=== PATIENT | female | born 1990 | race Caucasian/White ===

== ENCOUNTER 2020-06-07 12:02 | Outpatient (CLI) | payer OTHER, SELFPAY ==
[2020-06-07 17:21] LABS: Influenza A QL RT-PCR Negative (Negative); Influenza B QL RT-PCR Negative (Negative)
[2020-06-07 17:22] LABS: SARS-CoV-2 RNA PCR Negative (Negative)
== END 2020-06-07 12:03 | disposition home or self-care (01) ==
PROVIDERS: PCP Internal Medicine; Visit Provider Internal Medicine
DX: J06.9 Acute upper respiratory infection, unspecified (principal); Z20.822 Contact with and (suspected) exposure to COVID-19
CPT/HCPCS: 87502; C9803; U0003; U0005

== ENCOUNTER 2021-03-19 17:21 | Outpatient (CLI) | payer OTHER, SELFPAY ==
[2021-03-19 18:16] LABS: SARS-CoV-2 Ag Negative (Negative)
== END 2021-03-19 17:22 | disposition home or self-care (01) ==
LOC: CHSLAB 17:25
PROVIDERS: PCP Internal Medicine; Visit Provider Internal Medicine
DX: J06.9 Acute upper respiratory infection, unspecified (principal); Z20.822 Contact with and (suspected) exposure to COVID-19
CPT/HCPCS: 87426; C9803

== ENCOUNTER 2022-02-11 18:48 | Emergency (ER) | payer OTHER, SELFPAY ==
[2022-02-11 19:02] VITALS: BP 125/80; PULSE 104; RESP 16; TEMP 37.6; O2SAT 100
--- NOTE | 2022-02-11 19:11 | ED.URI ---
HPI - URI/Sore Throat General Chief Complaint: Upper Respiratory Infection Stated Complaint: COUGH Time Seen by Provider: 02/11/22 19:30 Source: patient and RN notes reviewed Mode of arrival: ambulatory Limitations: no limitations History of Present Illness HPI Narrative: 31-year-old female presents with concern for more than 2 week history of cough, sinus congestion, sinus pressure, general malaise, low-grade temperature. She reports she has been taking multiple uhil-cww-pqzvbyo medications without relief, reports she started taking Sudafed today which showed some relief of her sinus pain. She reports members of her family have had similar illness. MD elicited complaint: cough, nasal congestion and sinus pain Related Data Home Medications Medication Instructions Recorded Confirmed levothyroxine 50 mcg tablet 50 mcg DAILY 02/11/22 02/11/22 Allergies Allergy/AdvReac Type Severity Reaction Status Date / Time Penicillins Allergy Unknown Hives / Verified 02/11/22 19:23 Red Face Review of Systems Review of Systems: CONSTITUTIONAL: Reports malaise, fever. EYES: Denies visual changes, redness, or discharge. ENT: Reports rhinorrhea, congestion, sinus pain, otalgia and sore throat. CARDIOVASCULAR: Denies chest pain, palpitations, or edema. RESPIRATORY: Reports cough. Denies dyspnea. GASTROINTESTINAL: Denies abdominal pain, nausea, vomiting, diarrhea SKIN: Denies rash or itching. MUSCULOSKELETAL: Reports myalgia. NEUROLOGIC: Reports headache. All systems reviewed & are unremarkable except as noted in HPI and below PMFSH Comments At time of signature, agree with nursing past medical, surgical, social and family history. There is no relevant family history pertinent to the presenting complaint Exam Narrative: GENERAL: Nontoxic-appearing and in no acute distress. HEAD: Normocephalic EYES: PERRLA, conjunctivae clear ENT: Nares clear, turbinates edematous and erythematous, brown discharge. Mucous membranes moist. TM pearly nevarez with dull light reflex bilaterally; no tragal tenderness. Oropharynx not erythematous without lesions. Tonsils not enlarged and without exudate, no drooling, no hoarseness, no trismus, uvula midline. NECK: Supple. No lymphadenopathy CHEST: Clear to auscultation, breath sounds equal. No wheezing, rhonchi, rales, or stridor. No respiratory distress, speaks in full sentences. Cough noted HEART: Regular rate and rhythm. No murmur heard. SKIN: Warm, dry, no rash. NEURO: Alert and oriented x3. PSYCH: Normal mood and affect Course Course Emergency Course: Patient is aware of diagnosis, understands and agrees to treatment plan. Anticipatory guidance given. Patient agrees to follow-up as directed and is aware of reasons to seek care at the emergency department. Portions of this record may have been created with voice recognition software Level of Care: Express Care Visit Vital Signs Vital signs: Vital Signs Temperature 99.7 F H 02/11/22 19:02 Pulse Rate 104 H 02/11/22 19:02 Respiratory Rate 16 02/11/22 19:02 Blood Pressure 125/80 02/11/22 19:02 Pulse Oximetry 100 02/11/22 19:02 Temperature 99.7 F H 02/11/22 19:02 Pulse Rate 104 H 02/11/22 19:02 Respiratory Rate 16 02/11/22 19:02 Blood Pressure 125/80 02/11/22 19:02 Pulse Oximetry 100 02/11/22 19:02 Reviewed. MDM - URI/Sore Throat MDM Narrative Medical decision making narrative: Differential diagnosis considered: Byers virus, strep pharyngitis, allergic rhinitis, upper respiratory tract infection, sinusitis, rhinosinusitis, nasopharyngitis. viral pharyngitis, otitis media, otitis externa, pneumonia, bronchitis, viral cough syndrome, viral syndrome, and influenza. Exam findings show no acute concerns or changes; patient is non-toxic appearing and is in no distress. Patient is appropriate for outpatient treatment and follow-up. Lab Data Attestation: I reviewed the patient's lab results. Critical Care Time
== END 2022-02-11 19:50 | disposition home or self-care (01) ==
PROVIDERS: Emergency Provider Nurse Practitioner; PCP Internal Medicine
DX: J01.90 Acute sinusitis, unspecified (principal)
CPT/HCPCS: 99213; G0463

== ENCOUNTER 2022-07-08 19:19 | Emergency (ER) | payer OTHER, SELFPAY ==
--- NOTE | 2022-07-08 19:24 | ED.URI ---
HPI - URI/Sore Throat General Chief Complaint: Upper Respiratory Infection Stated Complaint: DIARRHEA/SORE THROAT Source: patient and RN notes reviewed History of Present Illness HPI Narrative: 31 yo F Presents to urgent care with complaints of a sore throat since this morning and diarrhea since Wednesday. Pt states her stomach started feeling queezy on Wednesday after she ate sushi for lunch. Pt reports lower abdominal cramping and discomfort intermittently. Reports a little right sided ear pain. Pt denies any vomiting or fevers. Pt states her daughter tested + for strep throat today. Related Data Home Medications Medication Instructions Recorded Confirmed levothyroxine 50 mcg tablet 50 mcg DAILY 02/11/22 07/08/22 Allergies Allergy/AdvReac Type Severity Reaction Status Date / Time Penicillins Allergy Unknown Hives / Verified 07/08/22 19:28 Red Face Review of Systems Review of Systems: Pertinent positives and pertinent negatives per HPI. PMFSH Comments At the time of my signature, I reviewed and agree with the nursing past medical, surgical, social, and family history. There is no relevant family history pertinent to the patient complaint. Exam Narrative: GENERAL: This is a well-nourished, well-developed patient, in no apparent distress. HEAD: normocephalic, atraumatic. EYES: Sclera clear/white. Vision is grossly intact. EARS: External ears normal, auditory canals clear and without drainage, TMs normal without perforation. Hearing grossly intact. NOSE: External nose normal with no obvious nasal discharge, nares without redness, no rhinorrhea. THROAT: Mucous membranes moist, posterior pharynx erythremic. NECK: Neck supple, non-tender without lymphadenopathy, masses or thyromegaly. CARDIOVASCULAR: Regular rate and rhythm without murmurs, gallops, or rubs. RESPIRATORY: Clear to auscultation. Breath sounds equal bilaterally. No wheezes, rales, or rhonchi. GASTROINTESTINAL: Abdomen soft, non-tender, nondistended. Bowel sounds are active. No hepato-splenomegaly, or palpable masses. No guarding. SKIN: warm, intact with no suspicious lesions or rash, good texture and turgor. NEURO: awake, alert, and oriented to person, place and time. There were no obvious focal neurologic abnormalities. Course Course Level of Care: Express Care Visit Vital Signs Vital signs: Vital Signs Temperature 98.1 F 07/08/22 19:30 Pulse Rate 93 04/26/23 19:30 Respiratory Rate 16 07/08/22 19:30 Blood Pressure 123/80 07/08/22 19:30 Pulse Oximetry 100 07/08/22 19:30 Temperature 98.1 F 07/08/22 19:30 Pulse Rate 93 07/08/22 19:30 Respiratory Rate 16 07/08/22 19:30 Blood Pressure 123/80 07/08/22 19:30 Pulse Oximetry 100 07/08/22 19:30 Reviewed MDM - URI/Sore Throat MDM Narrative Medical decision making narrative: Rapid strep is negative in the office; however we will send to the lab for confirmation; there is a small percentage chance that it can come back positive; if it is, we will call you in 2-3days; and your prescription will be call in to your pharmacy. However, there is NO indication for antibiotic at this time. -Increase your fluids and Vitamin C. -Oral rinses such as: Salt water gargles and/or may use topical anesthetic (eg. Chloraseptic spray) or lozenges to relieve dryness or throat pain. -Take tylenol and ibuprofen as needed for pain and fever as directed. -Frequent hand washing or hand index editor is one of the best ways to prevent spread of infection. -Follow up with primary care provider in 2-3 days if condition is not improving or seek ER visit if your child starts breathing fast/has trouble breathing, is not drinking enough fluids, muffle voice, difficulty opening the mouth or will not wake up or will not interact with you. You've been diagnosed with a viral illness that would not require antibiotics at this time. You may take Imodium for diarrhea. If you would like to ea
[2022-07-08 19:30] VITALS: BP 123/80; PULSE 93; RESP 16; TEMP 36.7; O2SAT 100
== END 2022-07-08 19:41 | disposition home or self-care (01) ==
PROVIDERS: Emergency Provider Nurse Practitioner Family; PCP Internal Medicine
DX: K52.9 Noninfective gastroenteritis and colitis, unspecified (principal); J02.9 Acute pharyngitis, unspecified; E03.9 Hypothyroidism, unspecified
CPT/HCPCS: 87081; 87880; 99213; G0463

== ENCOUNTER 2022-10-26 00:20 | Day surgery (SDC) | payer OTHER, SELFPAY ==
[2022-10-16 14:27] VITALS: BMI 24.8
--- NOTE | 2022-10-16 14:37 | PC.NURSE ---
Report to the Outpatient Waiting Room, entrance under the green pavilion located off [facility], at time _0600_ on date _[id number]_. Planned Procedure Time: _0730_. Time changes happen often and if your time is changed the preop area will call you the afternoon before. - You and your visitor will be asked to self-screen and do not enter if you have any COVID symptoms. - A mask is optional within the hospital at this time. Patients may have clear liquids (water, carbonated beverages, clear teas, apple juice) until 3 hours prior to surgery with a maximum of 20 ounces. - No food from midnight until time of surgery Take the following medications with a SIP of water the morning of surgery: __Lexapro, Levothyroxine and if needed Hydroxyzine DO NOT STOP ANY OF YOUR OTHER PRESCRIPTION MEDICATIONS PRIOR TO SURGERY ?EXCEPT THE FOLLOWING Medications to discontinue per physician ____Multivitamin and Magnesium Date to take last gihl___[phone] Please no make-up, nail surinamese, hairspray, perfume, deodorant, or body powder the day of surgery. No jewelry (including any body piercings) or valuables the day of surgery, leave them at home. Please take a shower or bath the night before, or the morning of, surgery with an antibacterial soap. Wear comfortable, loose fitting clothing. - Jewelry must be removed prior to entering the operating room. Rings and piercings that are not removed may be cut off. - The hospital will not accept responsibility for valuables. - Please leave all valuables, including medications, at home the day of surgery. If you are going home after surgery, a licensed fire truck driver must drive you home. - NO public transportation without another adult if you receive anesthesia. - We recommend that an adult stay with you for 24 hours following discharge. - We also recommend that you do not drive, make important decision, drink alcoholic beverages, or take any drugs that were not prescribed by your health care provider for at least 24 hours after your discharge time. Follow any additional instructions given to you from your surgeon. If you or anyone in your household have experienced Covid symptoms in the past week, please notify your surgeon or the nurse liaison at the phone number below for possible testing. Telephone instructions given to _Patient__and asked if any additional questions and then verbalized understanding. Patient advised to call surgeon office or pre surgery nurse liaison [phone] if any additional questions.
[2022-10-26] VITALS (10 sets, daily range): BP systolic 103–136; BP diastolic 56–90; PULSE 83–108; RESP 11–20; TEMP 36.2–36.9; O2SAT 100
[2022-10-26] MEDS: ACETAMINOPHEN 500 MG TABLET 1000 MG PO (07:29)
[2022-10-26] MEDS: LACTATED RINGERS 1,000 ML 30 ML IV CONT ×2 (07:30→10:05)
[2022-10-26] MEDS: KETOROLAC 15 MG/ML VIAL (*BKC) IV PUSH (07:36)
--- NOTE | 2022-10-26 08:15 | WPDANESEPPF ---
Anes - Initial Pre Proc Eval Procedure: Operation Date: 10/26/22 08:45 Proposed Procedures p Anorectal Examination Under Anesthesia, Excisional Hemorrhoidectomy - Carlos De La O MD Date/Time: 10/26/22 08:15 Surgeon: Carlos De La O MD Pre Op Diagnosis: bleeding internal hemorrhoids Patient Data Age: 31 Gender: F Height: 1.6 m Weight: 60.6 kg Last Vital Signs Temp 36.9 C 10/26/22 06:53 Pulse 98 10/26/22 06:53 Resp 20 10/26/22 06:53 BP 126/77 10/26/22 06:53 Pulse Ox 100 10/26/22 06:53 O2 Del Method Room Air 10/26/22 06:53 Allergies Allergy/AdvReac Type Severity Reaction Status Date / Time Penicillins Allergy Unknown Hives / Verified 10/26/22 06:49 Red Face Home Medications Medication Instructions Recorded Confirmed Type levothyroxine 50 mcg tablet 50 mcg DAILY 02/11/22 10/26/22 History escitalopram oxalate 5 mg tablet 5 mg PO DAILY #90 tabs 08/25/22 10/26/22 Rx (Lexapro) hydrocortisone 2.5 % topical cream 1 applic RECTAL QHS PRN itching 08/25/22 10/26/22 Rx with perineal applicator #30 grams (Anusol-HC) valacyclovir 500 mg tablet 500 mg PO DAILY #90 tabs 10/07/22 10/16/22 Rx (Valtrex) hydroxyzine pamoate 25 mg capsule 25 mg PO BID PRN Anxiety 10/16/22 10/26/22 History magnesium carbonate 250 mg capsule 250 mg PO DAILY 10/16/22 10/26/22 History multivitamin 1 tablet PO DAILY 10/16/22 10/26/22 History Patient hx anesthesia problems: none Family hx anesthesia problems: none Results Review: All pre-operative results and documents have been reviewed as part of the pre-operative evaluation. 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 Surgical History Surgical History H/O gynecological procedure Mirena Iud removal / reinsertion 10/12/2018 Mirena iud insertion 01/29/ History of colposcopy 09/29/2022 colposcopy - EDUARD 3 Family History Family History Mother Diabetes mellitus Grandparent Carcinoma of colon Heart disease Cerebrovascular accident Osteoporosis Malignant tumor of pancreas Malignant neoplasm of liver Social History Social History Smoking packs per day: 0.5 Smoking cigarettes per day: 10.0 Years smoked: 8 Smoking pack-years: 4.00 Smoking status: Former smoker Tobacco type: cigarettes Smoking end date: 10/17/19 Alcohol intake: current Alcohol use details: occasionally Substance use: never Lack of Transportation: No Lack of Food: Never True Current Housing: Decline to Answer Concerned About Future Housing: Decline to Answer Difficulty Paying Gas/Electric Bills: Decline to Answer Difficulty Paying for Meds: Decline to Answer Currently Unemployed: Decline to Answer Education: Decline to Answer Difficulty w/ Childcare or Family Care: Decline to Answer Living arrangements: with family 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 Gender identity (if verbalized by the patient): Female Sexual Orientation (if Verbalized by the Patient): Straight or Heterosexual Spiritual care concerns: No Anes - Eval Final PreProcedure Day of Procedure 10/26/22 08:15 Patient weight: normal Heart: regular rate and rhythm Lungs: clear to auscultation Airway: Mallampati scale class 1 Neurological: alert and oriented Last oral intake: >/= 8 hours ASA classification: II Emergent: no Anesthetic plan: proceed Anesthesia type and monitoring: general ETT and standard monitoring Results Review: All pre-operative results and documents have been reviewed as part of the pre-operative evaluation. Informed Consent: The twan
--- NOTE | 2022-10-26 08:27 | PM.IMHP ---
H&P: HPI History of Present Illness Date/Time: 10/26/22 08:27 Chief Complaint: Bleeding hemorrhoids Narrative: Ms Alex is a 31 year old female that presents to the office at the request of Dr Johnson for an evaluation of hemorrhoids. Patient reports she has had bleeding with and after BMs for about 8 years. Patient reports that it has become worse of the last 2 years. She states that it is not with every BMs but most BMs. She states that she is having a BM everyday to every other day. She does not have to strain to have a BM. She has 2 children, and feels like this actually all started when she was with her first and just is now worse now. Patient states the she notes blood on the toilet paper and occasionally dripping into the toilet. She admits severe itching. She denies any prolapsing as well as occasional discomfort. Patient denies any previous rectal procedures. She has tried OTC hemorrhoid creams and suppositories and admits these help for a short time but she has found nothing helps prison. She states that her grandfather passed in his 70s due to colon cancer. She states that he was dx in his 50s. PFSH Medical History? 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 H/O gynecological procedure Mirena Iud removal / reinsertion 10/12/2018 Mirena iud insertion 01/29/ Family History? Mother Diabetes mellitusGrandparent Carcinoma of colon Heart disease Cerebrovascular accident Osteoporosis Malignant tumor of pancreas Malignant neoplasm of liver Social History? Smoking status:? Never smoker Alcohol intake:? current Alcohol use details:? occasionally Substance use:? never Lack of Transportation:? No Lack of Food:? Never True Current Housing:? Decline to Answer Concerned About Future Housing:? Decline to Answer Difficulty Paying Gas/Electric Bills:? Decline to Answer Difficulty Paying for Meds:? Decline to Answer Currently Unemployed:? Decline to Answer Education:? Decline to Answer Difficulty w/ Childcare or Family Care:? Decline to Answer Living arrangements:? with family Occupation/Education:? 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 Female Sexual Orientation (if Verbalized by the Patient):? Straight or Heterosexual Female Reproductive History Menstrual Age of Menarche: 14 control method: progestin IUCD (Mirena) Total pregnancies: 3 Full term: 2 Ab spontaneous: 1 Intake Vital Signs ? 09/16/2313:49 Height 1.6 m Height (Inches) 63 Weight 63.503 kg Weight (Lbs) 140 lbs., 0 oz. BMI 24.7 BP 118/66 Blood Pressure Location Rt brachial Position Sitting Pulse 77 Pulse Source Monitor Temp 37.0 C Temp Source Temporal Artery Scan Pulse Oximetry (%) 99 Oxygen Delivery Method Room Air Visit Reasons:?Hemorrhoid Evaluation New Allergies/Adverse Reactions Penicillins Allergy (Unknown, Verified 09/16/22 14:42) Hives / Red Face Preferred laboratory: [facility] Pre-Planning preparation?: Yes Review of Systems Const Reports no additional complaints, Denies frequent falls, Denies headache(s) and Reports other (no recent weight change, no fever) Eyes Denies blurry vision, Denies itchy eyes, Denies photophobia and Denies spots in vision ENT Reports Normal hearing present, Denies headache(s), Denies hoarseness, Denies lip swelling and Denies sore throat Card Denies chest pain at rest, Denies irregular heart rhythm and Denies dyspnea Resp Denies chest congestion, Denies cough and Denies dyspnea GI Denies melena and Denies coffee ground emesis Musc Denies abnormal gait and Denies back pain Skin/ Breast Denies new lesions, Denies rash and Denies wounds Neuro Reports Normal hearing present, Denies abnormal gait, Denie
--- NOTE | 2022-10-26 08:30 | WPDHPUPDATE1 ---
History and Physical Update Update Date/Time: 10/26/22 08:30 History and Physical has been reviewed, including an updated exam of the patient. There are NO changes in the patient's condition. Risks, benefits, and alternatives have been discussed and questions answered. Patient agrees to proceed with procedure.
[2022-10-26] MEDS: ceFAZolin 2 GM/D5W 50 ML 2 GM/50 ML BAG IVPB (08:45)
[2022-10-26] MEDS: BUPIVACAINE/EPINEPHRINE 0.5% 50 ML VIAL 20 ML INFILTRATE (09:18)
[2022-10-26] MEDS: LIDO 1%/EPINEPHRINE 1:100,000 20 ML VIAL INFILTRATE (09:19)
--- NOTE | 2022-10-26 10:21 | PM.OP ---
Procedure Note - Brief Procedure Note - Brief Date of procedure: 10/26/22 bleeding internal hemorrhoids Post-op diagnosis: Same Procedure performed: Excisional hemorrhoidectomy x2 Surgeon: Carlos De La O MD Anesthesia: GETA Implants: None Estimated blood loss (mL): 30 Drains: No Packing: Yes Pathology: Yes Complications: No immediate complications Condition: Stable Disposition: PACU
[2022-10-26] MEDS: oxyCODONE HCL (*CRX) 5 MG TAB IR PO (11:58)
--- NOTE | 2022-10-28 12:29 | W.PM.PROC2 ---
Procedure Note - Detailed Date of Procedure 10/26/22 Pre-op Diagnosis bleeding internal hemorrhoids Post-op Diagnosis Same Procedure Performed Excisional hemorrhoidectomy x2 Surgeon Carlos De La O MD Anesthesia General Indications Patient is a 31-year-old female who complains of having pain this rectal bleeding. Examination she appears to have bleeding internal hemorrhoids grade 2 to 3 into hemorrhoidal columns. These were located at the 9:00 and 3:00 positions with the patient prone. She presents now for excisional hemorrhoidectomy x2. Findings Grade 2 to grade 3 nonbleeding internal hemorrhoids at the 9:00 and 3:00 positions with the patient prone. No anal canal or distal rectal polyps or other lesions. Description of Procedure The patient was brought to the operating room and placed under general endotracheal anesthesia on the gurney. She was then turned into the prone genie-knife position on the operating table taking great care to make sure all the pressure points were padded. The tiny anal region was then prepped and draped in usual sterile fashion. A time-out was then performed correctly identifying the patient as well as procedure to be performed. She was given perioperative IV antibiotics. I then proceeded to easily dilate the anal sphincter muscles with a well lubricated speculum. Upon circumferential evaluation of distal rectum and anal canal there was no evidence of any masses or polyps. There were 2 grade 2 to grade 3 non thrombosed internal hemorrhoids without stigmata of recent bleeding at the 9:00 and 3:00 positions. I then proceeded to perform excisional hemorrhoidectomy on the 2 internal hemorrhoids. I 1st started with 1 at the 9 o'clock position which was the smaller of the 2. With a Victor anal retractor in place I exposed the 9 o'clock position and placed a 2-0 chromic suture above the apex of the hemorrhoid. Then carefully incised the tissue on either side of the hemorrhoidal column all the way out to the perianal skin in a fanny configuration. Then with careful scissor dissection I dissected the superficial to the internal sphincter muscle fibers and then proceeded to excise out the hemorrhoid utilizing electrocautery. Hemorrhoid was then sent to pathology labeled as hemorrhoid 9:00. I then closed the incision by running the previously placed 2-0 chromic suture in a locking fashion out to the perianal skin. I then transition to being a 3-0 Vicryl suture to close the incision on the perianal skin. I then approached the right 3 o'clock position. Again a 2-0 chromic suture was placed at the apex of the hemorrhoid and then a #15 blade scalpel was used to incise the tissue on either side of the hemorrhoid. This incision was all longer and extended on out to the perianal skin for at least 2cm to completely excise out this hemorrhoid. Again dissection was carried out superficial to the internal sphincter muscle fibers utilizing sharp scissor and electrocautery dissection. Once the hemorrhoids were excised was sent to pathology labeled as hemorrhoid 3 o'clock position. Again I then closed the incision utilizing the 2-0 chromic suture that I placed previously and ran it in a locking fashion out to the perianal skin. I then transition to using a 3-0 Vicryl suture on the perianal skin to close the remaining part of the incision. I then packed the anal canal and there was no bleeding from the 2 incisions. I then irrigated out the anal canal on aspirating the 0 blood. Then injected 1% lidocaine mixed with 0.5% Marcaine around both the incisions and the perianal region for a perianal block. I also administered bilateral pudendal nerve blocks as well. There is an cleaned and I placed a Surgigelfoam packing into the anal canal. There is an cleaned and then fluffed 4x4s, ABD pads, and disposable underwear was used for final dressing. The patient tolerated the procedure well no complications. All sponges, ne
== END 2022-10-26 12:05 | disposition home or self-care (01) ==
PROVIDERS: PCP Family Medicine; Visit Provider Surgery
PROC: (CPT 46260; principal; 2022-10-26 08:45)
DX: K64.1 Second degree hemorrhoids (principal); E06.3 Autoimmune thyroiditis; B00.9 Herpesviral infection, unspecified; Z87.19 Personal history of other diseases of the digestive system; Z87.891 Personal history of nicotine dependence
CPT/HCPCS: 46260; 88304; A9270; J0690; J1100; J1885; J2250; J2405; J2704; J3010; J7120

== ENCOUNTER 2022-12-13 08:19 | Emergency (ER) | payer OTHER, SELFPAY ==
--- NOTE | 2022-12-13 08:23 | ED.URI ---
HPI - URI/Sore Throat General Chief Complaint: Upper Respiratory Infection Stated Complaint: Sore Throat;Cough Time Seen by Provider: 12/13/22 08:41 Source: patient and RN notes reviewed Mode of arrival: ambulatory Limitations: no limitations History of Present Illness HPI Narrative: 31-year-old female presents with concern for one-week history of nasal congestion, rhinorrhea, sore throat, cough. Reports she is not getting chest congestion. She reports her has strep throat and her daughters also are ill. She reports taking pseudoephedrine last night for her symptoms. MD elicited complaint: cough and sore throat Related Data Home Medications Medication Instructions Recorded Confirmed levothyroxine 50 mcg tablet 50 mcg DAILY 02/11/22 12/08/22 hydroxyzine pamoate 25 mg capsule 25 mg PO BID PRN Anxiety 10/16/22 12/08/22 magnesium carbonate 250 mg capsule 250 mg PO DAILY 10/16/22 12/08/22 multivitamin 1 tablet PO DAILY 10/16/22 12/08/22 Allergies Allergy/AdvReac Type Severity Reaction Status Date / Time Penicillins Allergy Unknown Hives / Verified 12/13/22 08:48 Red Face Review of Systems Review of Systems: CONSTITUTIONAL: Denies malaise, chills, sweats, or fever. EYES: Denies visual changes, redness, or discharge. ENT: Reports rhinorrhea, congestion, and sore throat. CARDIOVASCULAR: Denies chest pain, palpitations, or edema. RESPIRATORY: Reports cough and chest congestion. Denies dyspnea. GASTROINTESTINAL: Denies abdominal pain, nausea, vomiting, diarrhea SKIN: Denies rash or itching. MUSCULOSKELETAL: Denies myalgia. NEUROLOGIC: Denies headache. 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 Surgical History Surgical History (Updated 11/11/22 @ 13:32 by Bozena Napoles MA) H/O gynecological procedure Mirena Iud removal / reinsertion 10/12/2018 Mirena iud insertion 01/29/ H/O hemorrhoidectomy Excisional hemorrhoidectomy x2 on 10/26/22 SAW History of colposcopy 09/29/2022 colposcopy - EDUARD 3 Family History Family History Mother Diabetes mellitus Grandparent Carcinoma of colon Heart disease Cerebrovascular accident Osteoporosis Malignant tumor of pancreas Malignant neoplasm of liver Social History Social History Smoking packs per day: 0.5 Smoking cigarettes per day: 10.0 Years smoked: 8 Smoking pack-years: 4.00 Smoking status: Former smoker Tobacco type: cigarettes Smoking end date: 10/17/19 Alcohol intake: current Alcohol use details: occasionally Substance use: never Lack of Transportation: No Lack of Food: Never True Current Housing: Decline to Answer Concerned About Future Housing: Decline to Answer Difficulty Paying Gas/Electric Bills: Decline to Answer Difficulty Paying for Meds: Decline to Answer Currently Unemployed: Decline to Answer Education: Decline to Answer Difficulty w/ Childcare or Family Care: Decline to Answer Living arrangements: with family 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 There is no relevant family history pertinent to the presenting complaint Exam Narrative: GENERAL: Well-appearing, well-nourished, and in no acute distress. HEAD: Normocephalic EYES: PERRLA, conjunctivae clear ENT: Nares clear, turbinates edematous and erythematous. Mucous m
[2022-12-13 08:30] VITALS: BP 115/83; PULSE 90; RESP 16; TEMP 36.6; O2SAT 100
== END 2022-12-13 08:55 | disposition home or self-care (01) ==
PROVIDERS: Emergency Provider Nurse Practitioner; PCP Family Medicine
DX: J06.9 Acute upper respiratory infection, unspecified (principal)
CPT/HCPCS: 87081; 87880; 99213; G0463

== ENCOUNTER 2023-07-14 17:31 | Emergency (ER) | payer OTHER, SELFPAY ==
[2023-07-14 17:25] VITALS: BP 110/53; PULSE 92; RESP 20; TEMP 36.6; O2SAT 99
--- NOTE | 2023-07-14 17:55 | ED.NAVMDI ---
HPI - Nausea/Vomiting/Diarrhea General Chief complaint: Nausea/Vomiting/Diarrhea Stated complaint: Vomiting Time Seen by Provider: 07/14/23 17:31 History of Present Illness HPI Narrative: 32-year-old female with a history of anxiety and hypothyroidism presents to the emergency department for concerns for alcohol poisoning. Patient states last night she went out and had multiple shots and was drinking a lot of alcohol. States this morning she felt hung over and has had multiple episodes of nausea and vomiting. She became concerned when she was unable to keep down foods or fluids and began developing diffuse cramping. During my exam she does have a carpal pedal spasm of the left hand which states this has been occurring throughout the afternoon. She denies focal abdominal pain but does report some diffuse intermittent cramping. She states she had a couple episodes of diarrhea today as well. Denies dysuria or hematuria, chest pain or shortness of breath, cough or congestion, known fevers. Patient states that she does feel anxious and has had history of panic attacks in the past. Patient is concerned she may a panic attacks soon. LMP today. Patient states she drinks alcohol less than once per month, she is not a daily drinker. Related Data Home Medications Medication Instructions Recorded Confirmed levothyroxine 50 mcg tablet 50 mcg DAILY 02/11/22 02/08/23 hydroxyzine pamoate 25 mg capsule 25 mg PO BID PRN Anxiety 10/16/22 02/08/23 magnesium carbonate 250 mg capsule 250 mg PO DAILY 10/16/22 02/08/23 multivitamin 1 tablet PO DAILY 10/16/22 02/08/23 norethindrone acetate 5 mg tablet 5 mg PO DAILY 02/08/23 02/08/23 Allergies Allergy/AdvReac Type Severity Reaction Status Date / Time Penicillins Allergy Unknown Hives / Verified 07/14/23 18:07 Red Face Review of Systems Review of Systems: CONSTITUTIONAL: Denies fever, chills, or sweats. EYES: Denies visual changes, redness, or discharge. ENT: Denies rhinorrhea, congestion, sore throat, or otalgia. CARDIOVASCULAR: Denies chest pain, palpitations, or edema. RESPIRATORY: Denies cough or dyspnea. GASTROINTESTINAL: See HPI GENITOURINARY: Denies dysuria or hematuria. SKIN: Denies rash or itching. MUSCULOSKELETAL: Denies back pain, joint pain, or myalgia. NEUROLOGIC: Denies headache, numbness, or weakness. PSYCHIATRIC: Denies anxiety or depression. 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 Surgical History Surgical History H/O gynecological procedure Mirena Iud removal / reinsertion 10/12/2018 Mirena iud insertion 01/29/ H/O hemorrhoidectomy Excisional hemorrhoidectomy x2 on 10/26/22 SAW H/O LEEP (01/29/23) done with [facility] History of colposcopy 09/29/2022 colposcopy - EDUARD 3 History of colposcopy (11/09/22) CX BX HSIL/ CIN3 Family History Family History Mother Diabetes mellitus Grandparent Carcinoma of colon Heart disease Cerebrovascular accident Osteoporosis Malignant tumor of pancreas Malignant neoplasm of liver Social History Social History Smoking packs per day: 0.5 Smoking cigarettes per day: 10.0 Years smoked: 8 Smoking pack-years: 4.00 Smoking status: Former smoker Tobacco type: cigarettes Second hand tobacco smoke exposure: No Smoking end date: 10/17/19 Alcohol intake: current Alcohol use details: occasionally 1-2 a month Substance use: never Substance use type: does not use Lack of Transportation: No Lack of Food: Never True Current Housing: Decline to Answer Concerned About Future Housing: Decline to Answer Difficulty Paying Gas/Electric Bills: Dec
--- NOTE | 2023-07-14 17:58 | ECG_ITS ---
SEE SCANNED COPY FOR CONFIRMED REPORT. MTDD
[2023-07-14] MEDS: LORazepam INJ (*CRX) 2 MG/ML VIAL 0.5 MG IV PUSH (18:08)
[2023-07-14] MEDS: FAMOTIDINE 20 MG/2 ML VIAL IV PUSH (18:08)
[2023-07-14 18:46] LABS: Basophils Percent Auto 0.2 % (0.2-1.2); Hematocrit 35.8 % (37.0-47.0); Hemoglobin 11.9 g/dL (12.0-15.0); Immature Granulocyte Absolute 0.04 K/mm3 (0.00-0.031); Immature Granulocyte Percent A 0.4 % (0-0.5); Lymphocytes Percent Auto 2.8 % (18.3-44.2); Mean Corpuscular HGB Conc 33.2 g/dl (32-36); Mean Corpuscular Hemoglobin 29.8 pg (26-34); Mean Corpuscular Volume 89.5 fl (80-100); Mean Platelet Volume 11.3 fl (7.4-10.4); Monocytes Absolute Auto 0.4 K/mm3 (0.1-0.6); Monocytes Percent Auto 3.3 % (2.6-8.5); Neutrophils Absolute Auto 9.9 K/mm3 (1.3-6.7); Neutrophils Percent Auto 93.3 % (45.5-73.1); Platelet Count Result 168 k/mm3 (150-375); Red Cell Distribution Width 12.6 % (11.5-14.5); White Blood Count 10.6 K/mm3 (4.5-10.0)
[2023-07-14 19:06] LABS: Appearance Urine Clear (Clear); Bacteria Urine None Seen /hpf; Bilirubin Urine Negative (Negative); Blood Urine 1+ (Negative); Color Urine Yellow (Yellow); Glucose Urine UA Negative (Negative); Ketones Urine 4+ mg/dL (Negative); Leukocyte Esterase Ur Negative LEU/UL (Negative); Nitrate Urine Negative (Negative); Non Pathogenic Casts 0-2; Protein Urine Trace mg/dL (Negative); RBC Urine 0-2 /hpf (0-2); Specific Grav Ur 1.023 (1.001-1.035); Squamous Epithelial Cell Urine None Seen /hpf (Few); WBC Urine 0-5 /hpf (0-3); pH Urine 8.5 (5.0-9.0)
[2023-07-14 19:11] LABS: Add Urine Microscopic? YES
--- NOTE | 2023-07-14 19:13 | PC.NURSE ---
Assumed care of pt from JAIME Mary at this time. Pt resting comfortably in bed with call light within reach.
[2023-07-14] MEDS: LACTATED RINGERS 1,000 ML 999 ML IV CONT ×2 (19:16→20:34)
[2023-07-14 19:28] LABS: Alanine Aminotransferase 22 U/L (6-35); Albumin Level 4.3 g/dL (3.5-5.1); Alkaline Phosphatase 56 U/L (38-126); Anion Gap 14 mmol/L (4-12); Aspartate Amino Transferase 24 U/L (14-36); Blood Urea Nitrogen 10 mg/dL (7-17); Calcium 9.2 mg/dL (8.4-10.2); Carbon Dioxide 16 mmol/L (22-30); Chloride 113 mmol/L (98-107); Estimated CRCL calculation 95 ml/min; Estimated Glomerular Filt Rate > 60; Glucose 74 mg/dL (65-110); Lipase 109 U/L (23-300); Magnesium 1.5 mg/dL (1.6-2.3); Potassium 3.6 mmol/L (3.4-5.0); Sodium 143 mmol/L (137-145)
[2023-07-14 19:29] LABS: Lactic Acid Reflex 3.9 mmol/L (0.7-2.0)
[2023-07-14] MEDS: MAGNESIUM SULF 2 GM/WATER 50ML 2 GM/50 ML BAG IVPB (19:43)
[2023-07-14 19:57] LABS: Thyroid Stimulating Hormone Reflex 0.964 uIU/mL (0.465-4.68)
[2023-07-14 20:14] LABS: Creatine Kinase 101 U/L (30-135)
[2023-07-14 20:29] VITALS: BP 120/74; PULSE 74; RESP 16; O2SAT 100
[2023-07-14 21:44] LABS: Reflex Lactic Acid Yes or No Add Lactic
[2023-07-14 22:31] LABS: Lactic Acid Reflex 1.5 mmol/L (0.7-2.0)
[2023-07-14 22:32] LABS: Anion Gap 9 mmol/L (4-12); Blood Urea Nitrogen 8 mg/dL (7-17); Calcium 9.4 mg/dL (8.4-10.2); Carbon Dioxide 22 mmol/L (22-30); Chloride 110 mmol/L (98-107); Estimated CRCL calculation 95 ml/min; Estimated Glomerular Filt Rate > 60; Glucose 86 mg/dL (65-110); Potassium 3.7 mmol/L (3.4-5.0); Sodium 141 mmol/L (137-145)
[2023-07-14 23:00] VITALS: BP 128/64; PULSE 69; RESP 17; O2SAT 100
== END 2023-07-14 23:01 | disposition home or self-care (01) ==
PROVIDERS: Emergency Provider Physician Assistant; PCP Family Medicine
DX: R11.2 Nausea with vomiting, unspecified (principal); E86.0 Dehydration; E06.3 Autoimmune thyroiditis; F41.9 Anxiety disorder, unspecified; Z87.891 Personal history of nicotine dependence
CPT/HCPCS: 36415; 80048; 80053; 81001; 81025; 82550; 83605; 83690; 83735; 84443; 85025; 93005; 96361; 96365; 96366; 96375; 99284; J2060; J3475; J7120

== ENCOUNTER 2023-07-16 12:50 | Outpatient (CLI) | payer OTHER, SELFPAY ==
[2023-07-16 13:10] LABS: Basophils Absolute Auto 0.02 K/mm3 (0.00-0.10); Basophils Percent Auto 0.4 % (0.0-1.0); Eosinophils Absolute Auto 0.01 K/mm3 (0.02-0.50); Eosinophils Percent Auto 0.2 % (1.0-6.0); Hematocrit 39.3 % (35.0-49.0); Hemoglobin 12.3 g/dL (12.0-15.0); Immature Granulocyte Absolute 0.01 K/mm3 (0.00-0.00); Immature Granulocyte Percent A 0.2 % (0.0-0.0); Lymphocytes Absolute Auto 1.52 K/mm3 (1.10-4.50); Lymphocytes Percent Auto 33.1 % (18.0-42.0); Mean Corpuscular HGB Conc 31.3 g/dL (32-36); Mean Corpuscular Hemoglobin 28.3 pg (27.0-31.0); Mean Corpuscular Volume 90.6 fL (78.0-102.0); Mean Platelet Volume 10.8 fl (9.2-11.8); Monocytes Absolute Auto 0.37 K/mm3 (0.10-0.90); Monocytes Percent Auto 8.1 % (2.0-11.0); Neutrophils Absolute Auto 2.66 K/mm3 (1.70-7.20); Platelet Count Result 169 K/mm3 (150-420); Red Blood Count 4.34 M/mm3 (4.20-5.40); Red Cell Distribution Width 12.6 % (11.6-14.4); White Blood Count 4.6 K/mm3 (4.8-10.8)
[2023-07-16 13:29] LABS: Lactic Acid Reflex 0.9 mmol/L (0.4-2.0)
[2023-07-16 13:38] LABS: Alanine Aminotransferase 32 U/L (14-59); Albumin Level 3.8 g/dL (3.4-5.0); Alkaline Phosphatase 39 U/L (46-116); Amylase 36 U/L (25-115); Anion Gap 11 mmol/L (4-12); Aspartate Amino Transferase 22 U/L (15-37); Bilirubin,Total 0.5 mg/dL (0.00-1.00); Blood Urea Nitrogen 8 mg/dL (7-18); Calcium 8.8 mg/dL (8.5-10.1); Carbon Dioxide 28 mmol/L (21-32); Chloride 105 mmol/L (98-108); Estimated Glomerular Filt Rate > 60; Glucose 82 mg/dL (70-99); Lipase 35 U/L (16-77); Magnesium 1.9 mg/dL (1.8-2.4); Osmolality Calculated 295 mOsm/kg (285-295); Potassium 3.9 mmol/L (3.5-5.1); Sodium 144 mmol/L (136-145); Total Protein 6.7 g/dL (6.4-8.2)
== END 2023-07-16 12:51 | disposition home or self-care (01) ==
LOC: CHSLAB 12:54
PROVIDERS: PCP Internal Medicine; Visit Provider Internal Medicine
DX: R10.9 Unspecified abdominal pain (principal); R11.2 Nausea with vomiting, unspecified
CPT/HCPCS: 36415; 80053; 82150; 83605; 83690; 83735; 85025

== ENCOUNTER 2023-07-19 16:45 | Outpatient (CLI) | payer OTHER, SELFPAY ==
[2023-07-19 17:06] LABS: Appearance Urine Sl Cloudy (Clear); Basophils Absolute Auto 0.02 K/mm3 (0.00-0.10); Basophils Percent Auto 0.2 % (0.0-1.0); Bilirubin Urine 1+ (Negative); Blood Urine Trace-intact (Negative); Color Urine Yellow (Yellow); Eosinophils Absolute Auto 0.02 K/mm3 (0.02-0.50); Eosinophils Percent Auto 0.2 % (1.0-6.0); Glucose Urine UA Negative (Negative); Hematocrit 39.6 % (35.0-49.0); Hemoglobin 13.1 g/dL (12.0-15.0); Immature Granulocyte Absolute 0.03 K/mm3 (0.00-0.00); Immature Granulocyte Percent A 0.4 % (0.0-0.0); Ketones Urine 2+ (Negative); Leukocyte Esterase Ur Negative (Negative); Lymphocytes Absolute Auto 1.68 K/mm3 (1.10-4.50); Lymphocytes Percent Auto 20.9 % (18.0-42.0); Mean Corpuscular HGB Conc 33.1 g/dL (32-36); Mean Corpuscular Hemoglobin 29.1 pg (27.0-31.0); Mean Platelet Volume 10.7 fl (9.2-11.8); Monocytes Absolute Auto 0.35 K/mm3 (0.10-0.90); Monocytes Percent Auto 4.3 % (2.0-11.0); Neutrophils Absolute Auto 5.95 K/mm3 (1.70-7.20); Nitrate Urine Negative (Negative); Platelet Count Result 221 K/mm3 (150-420); Protein Urine Trace (Negative); Red Cell Distribution Width 11.9 % (11.6-14.4); Specific Grav Ur 1.025 (1.010-1.020); Urobilinogen Urine 0.2 mg/dL (0.2-1.0); White Blood Count 8.1 K/mm3 (4.8-10.8)
[2023-07-19 17:11] LABS: Add Urine Microscopic? YES; Bacteria Urine Trace /hpf; Mucus Urine Moderate /lpf; RBC Urine 0-2 /hpf (0-2); Squamous Epithelial Cell Urine Few /hpf (Few); WBC Urine None seen /hpf (0-3)
[2023-07-19 17:42] LABS: Alanine Aminotransferase 29 U/L (14-59); Albumin Level 4.2 g/dL (3.4-5.0); Alkaline Phosphatase 46 U/L (46-116); Amylase 38 U/L (25-115); Anion Gap 9 mmol/L (4-12); Aspartate Amino Transferase 20 U/L (15-37); Beta HCG Quantitative < 1.00 mIU/mL (0-6); Bilirubin,Total 0.7 mg/dL (0.00-1.00); Blood Urea Nitrogen 8 mg/dL (7-18); CRP 0.7 mg/dL (0.0-0.9); Calcium 9.6 mg/dL (8.5-10.1); Carbon Dioxide 30 mmol/L (21-32); Chloride 101 mmol/L (98-108); Estimated Glomerular Filt Rate > 60; Glucose 79 mg/dL (70-99); Lipase 25 U/L (16-77); Osmolality Calculated 287 mOsm/kg (285-295); Potassium 3.8 mmol/L (3.5-5.1); Sodium 140 mmol/L (136-145); Total Protein 7.5 g/dL (6.4-8.2)
== END 2023-07-19 16:46 | disposition home or self-care (01) ==
LOC: CHSLAB 16:48
PROVIDERS: PCP Internal Medicine; Visit Provider Internal Medicine
DX: R10.9 Unspecified abdominal pain (principal); R11.2 Nausea with vomiting, unspecified
CPT/HCPCS: 36415; 80053; 81001; 82150; 83690; 84702; 85025; 86140

== ENCOUNTER 2023-07-22 08:44 | Outpatient (CLI) | payer OTHER, SELFPAY ==
--- NOTE | ~2023-07-22 | US_ITS ---
Limited Abdominal Sonogram: Real-time sonographic imaging of the right upper quadrant was performed. Clinical History: Abdominal pain Findings: The liver appears normal with no evidence of mass lesion or bile duct dilatation. Main por linda vein demonstrates normal direction of flow. The gallbladder is partially distended, and appears n ormal with no evidence of gallstone or wall thickening. The common bile duct measures 3 mm. The visu alized pancreas, aorta, and IVC are unremarkable. Impression: No significant abnormality seen. Reviewed, dictated and finalized at location M. Impression: No significant abnormality seen.
== END 2023-07-22 08:45 | disposition home or self-care (01) ==
LOC: CHSIMG 08:46
PROVIDERS: PCP Internal Medicine; Visit Provider Internal Medicine
DX: R10.9 Unspecified abdominal pain (principal); R11.2 Nausea with vomiting, unspecified
CPT/HCPCS: 76705

== ENCOUNTER 2023-11-03 09:33 | Outpatient (CLI) | payer OTHER, SELFPAY ==
--- NOTE | ~2023-11-03 | NM_ITS ---
EXAM: NM gastric emptying study DATE: 11/03/2023 15:03 INDICATION: Nausea and vomiting. TECHNIQUE: A gastric emptying study was performed using the methodology of Galdino BELLO, et al. J Nucl Med 2007; 48:568-572. The patient was given a meal consisting of 2 scrambled eggs labeled with 0.990 mCi Tc-99m sulfur colloid, 2 slices of toast, two packages of jam, and approximately 120 mL of water . Simultaneous anterior and posterior 1-min images of the abdomen were obtained with the patient supi ne at multiple time points over a total period of 4 hours. The geometric mean of anterior and posteri or views was determined, and the percentage retention was calculated for each time point. COMPARISON: None. FINDINGS: Gastric retention of the radiotracer-labeled meal was 35%, 19%, and 8% at the 1-hour, 2-ho ur, and 4-hour time points, respectively. With this technique, apparent rapid gastric emptying is sug gested by <30% gastric retention at 1 hour. Delayed gastric emptying is defined by gastric retention of >90% at 1 hour, >60% retention at 2 hours, or >10% retention at 4 hours. IMPRESSION: 1. Normal gastric emptying. Reviewed, dictated and finalized at location A. IMPRESSION: 1. Normal gastric emptying.
== END 2023-11-03 09:34 | disposition home or self-care (01) ==
PROVIDERS: PCP Internal Medicine
DX: R11.2 Nausea with vomiting, unspecified (principal)
CPT/HCPCS: 78264; A9541

== ENCOUNTER 2024-04-24 01:33 | Day surgery (SDC) | payer OTHER, SELFPAY ==
[2024-04-17 12:33] VITALS: BMI 21.4
--- NOTE | 2024-04-17 12:41 | PC.NURSE ---
Addendum entered by Kristi Romano RN 04/17/24 12:48: PT INSTRUCTED TO TAKE LEVOTHYROXINE, LEXAPRO AND BCP AM OF SURGERY. STOPPING VITAMINS AND SUPPLIMENTS 04/20/24 Original Note: Report to the Outpatient Waiting Room, entrance under the green pavilion located off [facility], at time _0830 on date 04/24/24_. Planned Procedure Time: _1030_.? Time changes happen often and if your time is changed the preop area will call you the afternoon before. - You and your visitor will be asked to self-screen and do not enter if you have any COVID symptoms. Please call surgeon if you need to reschedule. - A mask is optional within the hospital at this time. Patients may have clear liquids (water, carbonated beverages, clear teas, apple juice) until 3 hours prior to surgery with a maximum of 20 ounces. - No food from midnight until time of surgery and no smoking. This includes no chewing gum, candy or mints. - Infants may have breast milk until 4 hours before surgery, infant formula 6 hours prior to surgery. - Children will be allowed to drink immediately following surgery.? If applicable, please bring a bottle or sippy cup to assist with drinking. Juice, water, soda, and popsicles are readily available.? For infants on formula, please bring formula the day of surgery.? Pacifiers are allowed. Take only the following medications with a SIP of water on the morning of surgery: DO NOT STOP ANY OF YOUR OTHER PRESCRIPTION MEDICATIONS PRIOR TO SURGERY EXCEPT THE FOLLOWING Medications to discontinue per physician Date to take last dose Please no make-up, nail sammarinese, hairspray, perfume, deodorant, or body powder the day of surgery.? No jewelry (including any body piercings) or valuables the day of surgery, leave them at home.? Please take a shower or bath the night before, or the morning of, surgery with HIBICLENS antibacterial soap.? Wear comfortable, loose fitting clothing.? Children are encouraged to wear pajamas. - Jewelry must be removed prior to entering the operating room.? Rings and piercings that are not removed may be cut off. - The hospital will not accept responsibility for valuables.? - Please leave all valuables, including medications, at home the day of surgery. If you are going home after surgery, a licensed wrecking car driver must drive you home.? - NO public transportation without another adult if you receive anesthesia. - We recommend that an adult stay with you for 24 hours following discharge. - We also recommend that you do not drive, make important decision, drink alcoholic beverages, or take any drugs that were not prescribed by your health care provider for at least 24 hours after your discharge time. For Pediatric surgeries, we recommend two adults accompany the child home. Hold all vitamins and supplements for 3 days per anesthesiologist. Follow any additional instructions given to you from your surgeon. Telephone instructions given to _PATIENT__and asked if any additional questions and then verbalized understanding. Patient advised to call surgeon office or pre surgery nurse liaison [phone] if any additional questions.
[2024-04-24] VITALS (10 sets, daily range): BP systolic 117–161; BP diastolic 60–87; PULSE 83–130; RESP 12–18; TEMP 36.6–36.7; O2SAT 98–100
[2024-04-24] MEDS: LACTATED RINGERS 1,000 ML 30 ML IV CONT (09:00)
[2024-04-24 09:20] LABS: BEDSIDEPREGUCG Negative (Negative)
--- NOTE | 2024-04-24 09:59 | P.HP_ITS ---
H&P: HPI History of Present Illness Date/Time: 04/24/24 09:59 Chief Complaint: Painful and irritated perianal skin tags Narrative: Kimberlyn returns to the office for an evaluation of hemorrhoids. Patient underwent an excisional hemorrhoidectomy in 10/2022. She states she has had rectal pain, pain with BM's and irregular BM's since procedure was done. She reports minimal blood when wiping. Patient reports itching as well, but denies any drainage. Patient has been using OTC medications for relief. She states she is currently undergoing workup with GI for irregular bowels. Review of Systems Review of Systems: The remainder of the review of systems to include constitutional, HEENT, cardiovascular, respiratory, GI, , integumentary, musculoskeletal, endocrine, immunologic, hematologic, psychiatric, and neurologic are all negative except for which is mentioned above in the HPI. 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 H/O hemorrhoidectomy Excisional hemorrhoidectomy x2 on 10/26/22 SAW History of colposcopy 09/29/2022 colposcopy - EDUARD 3 H/O gynecological procedure (01/29/23) Mirena Iud removal / reinsertion 10/12/2018 Mirena iud insertion 01/29/ Family History Family History Mother Diabetes mellitus Grandparent Carcinoma of colon Heart disease Cerebrovascular accident Osteoporosis Malignant tumor of pancreas Malignant neoplasm of liver Social History Social History Smoking packs per day: 0.5 Smoking cigarettes per day: 10.0 Years smoked: 8 Smoking pack-years: 4.00 Smoking status: Former smoker Tobacco type: cigarettes Second hand tobacco smoke exposure: No Smoking end date: 10/17/19 Alcohol intake: current Alcohol use details: occasionally 1-2 a month Substance use: never Substance use type: does not use Do You Feel Safe in your Home?: Yes Lack of Transportation: No Lack of Food: Never True Current Housing: Decline to Answer Concerned About Future Housing: Decline to Answer Difficulty Paying Gas/Electric Bills: Decline to Answer Difficulty Paying for Meds: Decline to Answer Currently Unemployed: Decline to Answer Education: Decline to Answer Difficulty w/ Childcare or Family Care: Decline to Answer Living arrangements: with family Additional living arrangements comments: 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 Gender identity (if verbalized by the patient): Female Sexual Orientation (if Verbalized by the Patient): Straight or Heterosexual Spiritual care concerns: No Meds Home Medications and Allergies Home Medications ?Medication ?Instructions ?Recorded ?Confirmed ?Type levothyroxine 50 mcg tablet 50 mcg PO DAILY 02/11/22 04/24/24 History multivitamin 1 tablet PO DAILY 10/16/22 04/24/24 History norgestimate 0.25 mg-ethinyl 1 tablet PO DAILY #112 tabs 02/22/24 04/24/24 Rx estradiol 35 mcg tablet (Sprintec (28)) valacyclovir 500 mg tablet 500 mg PO .PRN 03/22/24 04/17/24 History (Valtrex) magnesium 200 mg tablet 200 mg PO DAILY 04/17/24 04/24/24 History escitalopram oxalate 10 mg tablet 10 mg PO DAILY #30 tabs 04/20/24 04/24/24 Rx Allergies Allergy/AdvReac Type Severity Reaction Status Date / Time Penicillins Allergy Unknown Hives / Verified 04/24/24 09:10 Red Face Vital Signs Vital Signs - 24 hr 04/24/24 08:48 Temperature 36.7 C Pulse Rate 83 Respiratory Rate 18 Blood Pressure 117/67 Pulse Oximetry 100 Oxygen Delivery Room Air Exam Const: General: comfortable and no acute distress HENMT: Ears: TM's normal bilaterally Face/Nose/Sinus: Normal nares present Mouth: Yes moist mucous membranes Eyes: General: appearance normal, both eyes and all related structures Sclera: sclerae normal Pupils: Equal, round and reactive pupils present EOM: EOMs intact bilaterally Neck: Neck: supple and no JVD Resp: Effort & Inspection: normal respiratory effort Auscultation: clear to auscultation bilaterally Cardio: Rate: regular rate Rhythm: regular rhythm GI: GI Palp: Yes Soft to palpation, No Firmness to palpation present (GI), No Tenderness to palpation present (GI), No Guarding due to palpation present (GI) and No Hernia present Other: SHERITA shows normal sphincter tone. Minor grade 1-2 hemorrhoids. At 3:00 with patient prone, there is a 1cm x 0.3cm perianal skin tag. At 9:00 with patient prone, there is a 0.5cm x 0.2cm skin tag. Both irritated but not bleeding presently. No anal fissures. Skin: General skin exam: normal color and no rashes or lesions noted Neuro: General: gait normal Speech: normal speech Motor exam (neuro): 5/5 motor strength present throughout Sensory Exam: normal sensation Extrem: General: normal to inspection Psych: Mental Status: mental status grossly normal Affect: normal affect Assessment and Plan Assessment and plan (1) Skin tag of perianal region: Code(s): K64.4 - Residual hemorrhoidal skin tags Status: Acute Assessment and Plan: Clinical exam reveals bleeding perianal skin tags. I recommend an excision of bleeding perianal skin tags due to her frequent bleeding and frequent episodes of irritation and itching. This is to be done under general anesthesia as an outpatient. Procedure risks, benefits, indications, and expected outcomes were discussed with the patient in detail. All questions were answered.
--- NOTE | 2024-04-24 10:02 | WPDHPUPDATE1 ---
History and Physical Update Update Date/Time: 04/24/24 10:02 History and Physical has been reviewed, including an updated exam of the patient. There are NO changes in the patient's condition. Risks, benefits, and alternatives have been discussed and questions answered. Patient agrees to proceed with procedure.
--- NOTE | 2024-04-24 10:03 | P.PNAN_ITS ---
Anes - Initial Pre Proc Eval Procedure: Operation Date: 04/24/24 10:30 Proposed Procedures p Excision of Perianal Skin Tags Times Two - Carlos De La O MD Date/Time: 04/24/24 10:03 Surgeon: Carlos De La O MD Pre Op Diagnosis: Bleeding of Perianal Skin Tags Patient Data Age: 33 Gender: F Height: 1.6 m Weight: 53 kg Last Vital Signs Temp 98.1 F 04/24/24 08:48 Pulse 83 04/24/24 08:48 Resp 18 04/24/24 08:48 BP 117/67 04/24/24 08:48 Pulse Ox 100 04/24/24 08:48 O2 Del Method Room Air 04/24/24 08:48 Allergies Allergy/AdvReac Type Severity Reaction Status Date / Time Penicillins Allergy Unknown Hives / Verified 04/24/24 09:10 Red Face Home Medications ?Medication ?Instructions ?Recorded ?Confirmed ?Type levothyroxine 50 mcg tablet 50 mcg PO DAILY 02/11/22 04/24/24 History multivitamin 1 tablet PO DAILY 10/16/22 04/24/24 History norgestimate 0.25 mg-ethinyl 1 tablet PO DAILY #112 tabs 02/22/24 04/24/24 Rx estradiol 35 mcg tablet (Sprintec (28)) valacyclovir 500 mg tablet 500 mg PO .PRN 03/22/24 04/17/24 History (Valtrex) magnesium 200 mg tablet 200 mg PO DAILY 04/17/24 04/24/24 History escitalopram oxalate 10 mg tablet 10 mg PO DAILY #30 tabs 04/20/24 04/24/24 Rx Laboratory Tests 04/24/24 09:16 POC Urine HCG, Qual Negative (Negative) Patient hx anesthesia problems: none Family hx anesthesia problems: none Results Review: All pre-operative results and documents have been reviewed as part of the pre- operative evaluation. 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 Surgical History Surgical History History of colposcopy (11/09/22) CX BX HSIL/ CIN3 H/O LEEP (01/29/23) done with [facility] H/O hemorrhoidectomy Excisional hemorrhoidectomy x2 on 10/26/22 SAW History of colposcopy 09/29/2022 colposcopy - EDUARD 3 H/O gynecological procedure (01/29/23) Mirena Iud removal / reinsertion 10/12/2018 Mirena iud insertion 01/29/ Family History Family History Mother Diabetes mellitus Grandparent Carcinoma of colon Heart disease Cerebrovascular accident Osteoporosis Malignant tumor of pancreas Malignant neoplasm of liver Social History Social History Smoking packs per day: 0.5 Smoking cigarettes per day: 10.0 Years smoked: 8 Smoking pack-years: 4.00 Smoking status: Former smoker Tobacco type: cigarettes Second hand tobacco smoke exposure: No Smoking end date: 10/17/19 Alcohol intake: current Alcohol use details: occasionally 1-2 a month Substance use: never Substance use type: does not use Do You Feel Safe in your Home?: Yes Lack of Transportation: No Lack of Food: Never True Current Housing: Decline to Answer Concerned About Future Housing: Decline to Answer Difficulty Paying Gas/Electric Bills: Decline to Answer Difficulty Paying for Meds: Decline to Answer Currently Unemployed: Decline to Answer Education: Decline to Answer Difficulty w/ Childcare or Family Care: Decline to Answer Living arrangements: with family Additional living arrangements comments: 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 Gender identity (if verbalized by the patient): Female Sexual Orientation (if Verbalized by the Patient): Straight or Heterosexual Spiritual care concerns: No Anes - Eval Final PreProcedure Day of Procedure 04/24/24 10:03 Patient weight: normal Lungs: normal air movement Airway: Mallampati scale class II Neurological: alert and oriented Last oral intake: >/= 8 hours ASA classification: II Emergent: no Anesthetic plan: proceed Anesthesia type and monitoring: general LMA and standard monitoring Results Review: All pre-operative results and documents have been reviewed as part of the pre- operative evaluation. Hx of bartolo, ex smoker quit 2021. Informed Consent: The patient's anesthetic plan and its attendant risks and benefits were discussed with the patient/family/POA. Questions were solicited and answers provided to the satisfaction of the patient/family/POA.
[2024-04-24] MEDS: SCOPOLAMINE 1 MG PATCH 1 PATCH TRANSDERM (10:04)
[2024-04-24] MEDS: ceFAZolin 2 GM/D5W 50 ML 2 GM/50 ML BAG IVPB (10:24)
[2024-04-24] MEDS: BUPivacaine HCL 0.5% PF 30 ML VIAL INFILTRATE (10:26)
--- NOTE | 2024-04-24 11:08 | P.OP_ITS ---
Procedure Note - Detailed Date of Procedure 04/24/24 Pre-op Diagnosis Bleeding of Perianal Skin Tags Post-op Diagnosis Same Procedure Performed Excision of perianal skin tags x2. Surgeon Carlos De La O MD Anesthesia General Indications Patient is a 33-year-old female who previously underwent excisional hemorrhoid ectomy. She has residual skin tags from the excision which are irritating and bleeding. She presents now for excision of the perianal skin tags which are very symptomatic. Findings Patient had to 1cm perianal skin tags which were broad-based was minor irritation but no ulceration. One was located at 3:00 a.m. position the left lateral side with the patient in lithotomy and the other was located on the right lateral side of process 7 o'clock position. Description of Procedure After informed consent was obtained patient brought to the operating room she was placed supine position and placed under general LMA anesthesia. Her legs were then placed in high stirrups she was then in the lithotomy position. The perianal perineal region was then prepped and draped usual sterile fashion. A time-out was then performed correctly identifying the patient as well as procedure to be performed. She was given perioperative IV antibiotics. I 1st started by excising off the perianal skin tag at the 3 o'clock position left lateral side. 1% lidocaine mixed with 0.5% Marcaine was injected underneath the skin tag. A 15 blade scalpel was then used to make a elliptical incision around the base of the skin tag. Electrocautery was then used to completely excise off the skin tag. The skin tag was sent to pathology for examination. Hemostasis was achieved in the incision utilized electrocautery. The incision was then closed utilizing a running and locking to 3-0 Vicryl suture. The skin tag in the right lateral side a 7 hole position was sized a similar fashion. Again the stem local anesthetic mixture was injected underneath the skin tag for local anesthetic effect. Same scalp was then used to make elliptical incision around the redundant skin I was completely excised off utilized electrocautery. The skin tag was sent with the other skin tag to pathology for examination hemostasis was achieved incision electrocautery was irrigated sterile saline solution. This incision was then closed utilizing a running and locking 2-0 Vicryl suture as well. The area was then cleaned and then a perianal block with the local anesthetic mixture was injected. Bilateral pudendal nerve blocks were placed as well. The patient tolerated the procedure well no complications. All sponges, needles, and instrument counts were correct at the end procedure. EBL was _10__cc. The patient was awakened and taken to recovery in stable and satisfactory condition. Implants None Estimated Blood Loss 10 Drains No Packing No Pathology Yes (Skin perianal skin tags x2 to pathology) Complications No immediate complications Condition Stable Disposition PACU [facility] Billing Surgery - Charge Forward: Surgery Billing
[2024-04-24] MEDS: diazePAM INJ (*CRX) 10 MG/2 ML SYRINGE 2 MG IV PUSH ×2 (11:18→11:26)
[2024-04-24] MEDS: oxyCODONE HCL (*CRX) 5 MG TAB IR PO (12:41)
== END 2024-04-24 13:39 | disposition home or self-care (01) ==
PROVIDERS: PCP Internal Medicine; Visit Provider Surgery
PROC: (CPT 46230; principal; 2024-04-24 10:30)
DX: K64.4 Residual hemorrhoidal skin tags (principal); F41.9 Anxiety disorder, unspecified; E06.3 Autoimmune thyroiditis; Z98.890 Other specified postprocedural states; Z87.891 Personal history of nicotine dependence; Z80.0 Family history of malignant neoplasm of digestive organs; Z82.49 Family history of ischemic heart disease and other diseases of the circulatory system
CPT/HCPCS: 46230; 88305; A9270; J0690; J1100; J1200; J2003; J2004; J2250; J2405; J2704; J3010; J3360; J7120

== ENCOUNTER 2024-08-14 10:32 | Outpatient (CLI) | payer OTHER, SELFPAY ==
--- NOTE | ~2024-08-14 | XR_ITS ---
Right Hand Technique: PA, oblique, and lateral views were obtained. Clinical History: Third finger pain Findings: No acute fracture or dislocation is seen. Osseous alignment is anatomic. Joint spaces are p reserved. Soft tissues are unremarkable. Impression: Unremarkable right hand. Reviewed, dictated and finalized at location . Impression: Unremarkable right hand.
== END 2024-08-14 10:33 | disposition home or self-care (01) ==
PROVIDERS: PCP Internal Medicine; Visit Provider Internal Medicine
DX: M79.644 Pain in right finger(s) (principal); R60.9 Edema, unspecified
CPT/HCPCS: 73130

== ENCOUNTER 2025-02-16 15:45 | Emergency (ER) | payer OTHER, SELFPAY ==
[2025-02-16] VITALS (35 sets, daily range): BP systolic 93–125; BP diastolic 56–77; PULSE 73–106; RESP 8–41; TEMP 36.8; O2SAT 95–100
--- OUTSIDE RECORDS SUMMARY | 2025-02-16 15:56 | XMS_ITS ---
Author Organization Unknown Address [id number] [place] [phone] Phone Care Team Providers Care Labor Arbitrator Hearing Office Name Role Phone DEMETRIUS Ro Attending Unavailable LUCILLE WHITAKER CRNA Unavailable EVGENY WILL Primary Unavailable Immunization Immunization Date Status Additional Notes Code Code System COVID-19, mRNA, LNP-S, PF, 3 0 mcg/0.3 mL dose 07/03/2020 Completed 208 CVX COVID-19, mRNA, LNP-S, PF, 3 0 mcg/0.3 mL dose 08/02/2020 Completed 208 CVX COVID-19, mRNA, LNP-S, PF, 3 0 mcg/0.3 mL dose 02/21/2021 Completed 208 CVX Results TEST URINE - Colle ct Date/Time: 09/24/2023 07:05 [facility] ID: [id number] [place], [place], [phone] LOINC: Test Value Unit Reference Range Code Code System Flag URINE PREG NEGATIVE Social History Type Status Start Date End Date Code Code Syst em Smoking History Former smoker 4802593 SNOMED CT Sex Female Vital Signs Vital Sign Value Unit Wickes Value Wickes Unit Date/Time Recent/Initial? Code Code System Body Mass Index 21.61 kg/m2 09/08/2023 14:15 Initial 65142 -5 LOINC Systolic Blood Pressure 118 mm[Hg] 09/24/2023 07:14 Initial 8480- 6 LOINC Diastolic Blood Pressure 70 mm[Hg] 09/24/2023 07:14 Initial 8462- 4 LOINC Body Surface Area 1.57 m2 09/08/2023 14:15 Initial 3140- 1 LOINC Height 160.020 0 cm 63.00 in 09/08/2023 14:15 Initial 8302- 2 [facility] O2 Saturation 100 % 2023 07:14 Initial 52711 -5 [facility] Pulse 95.0 /min 09/24/2023 07:14 Initial 8867- 4 [facility] Respiration 16 /min 09/24/19 07:14 Initial 9279- 1 [facility] Temperature 36.9 Ángela 98.4 F 09/24/19 07:14 Initial 8310- 5 [facility] Weight 55.34 kg 122.00 lbs 09/08/2023 14:15 Initial 25688 -7 [facility] Medications Medication Start Date End Date Route Frequency Dose Code Code System Medication Instructions Home Meds Escitalopram 10MG Oral Tablet 09/24/2023 Unknown ORAL ONCE A DAY 10 MILLIGRAMS 390250 RxNorm TAKE 10 MILLIGRAMS ORAL ONCE A DAY Famotidine 40MG Oral Tablet 09/24/2023 Unknown ORAL AT BEDTIME 40 MILLIGRAMS 933777 RxNorm TAKE 40 MILLIGRAMS ORAL AT BEDTIME Levothyroxine 50MCG Oral Tablet 09/24/2023 Unknown ORAL ONCE A DAY 50 MCG 931129 RxNorm TAKE 50 MCG ORAL ONCE A DAY Pantoprazole Sodium 40 MG Oral Tablet, Delayed Release 09/24/2023 Unknown ORAL ONCE A DAY 40 MG 104713 RxNorm TAKE 40 MG ORAL ONCE A DAY MILADIS 3MG-0.02MG;No Streng Oral Tablet 09/24/2023 Unknown ORAL ONCE A DAY 1 unit(s) 441494 RxNorm TAKE 1 EACH ORAL ONCE A DAY Zofran 8MG Oral Tablet 09/24/2023 Unknown ORAL NEEDED TWICE A DAY 8 MILLIGRAMS 832464 RxNorm TAKE 8 MILLIGRAMS ORAL NEEDED TWICE A DAY Hospital Discharge Instructions Should you have any questions prior to discharge, please contact a member of your healthcare team. If you have left the hospital and have any questions, please contact your primary care physician. Reason For Referral No Data Found Procedures Procedure Name Date Status Code Code Syste m History of LEEP completed [id number] SNOME DCT Open hemorrhoidectomy completed [id number] SNO MEDCT Anesthesia for upper gastroi ntestinal endoscopic procedures, endoscope int 09/24/2023 completed 15791 CPT Esophagogastroduodenoscopy, flexible, transoral; with biopsy, single or mu 09/24/2023 completed 63716 CPT Allergies and Adverse Reactions Allergy Substance Reaction Severity Start Date Concern Status Co de Code System PENICILLIN Active Plan of Treatment MRI Brain WO Contrast (27452) 9 EGD 09/24/2023 Encounters Encounter Diagnosis Start Date Code Code Sys tem Nausea with vomiting, unspecified 09/24/2023 SNOMED-CT Personal Care Team Section Procedures Notes
--- OUTSIDE RECORDS SUMMARY | 2025-02-16 15:56 | XMS_ITS ---
Author Organization Unknown Address [address] [place] [phone] Phone Care Team Providers Care Statement Distribution Clerk Name Role Phone TANIA SU Nica Attending Unavailable EVGENY IWLL Primary Unavailable Immunization Immunization Date Status Additional Notes Code Code System COVID-19, mRNA, LNP-S, PF, 3 0 mcg/0.3 mL dose 07/03/2020 Completed 208 CVX COVID-19, mRNA, LNP-S, PF, 3 0 mcg/0.3 mL dose 08/02/2020 Completed 208 CVX COVID-19, mRNA, LNP-S, PF, 3 0 mcg/0.3 mL dose 02/21/2021 Completed 208 CVX Social History Type Status Start Date End Date Code Code Syst em Smoking History Former smoker [id number] SNOMED CT Sex Female Medications Medication Start Date End Date Route Frequency Dose Code Code System Medication Instructions Home Meds Escitalopram 10MG Oral Tablet 09/24/2023 Unknown ORAL ONCE A DAY 10 MILLIGRAMS 065234 RxNorm TAKE 10 MILLIGRAMS ORAL ONCE A DAY Famotidine 40MG Oral Tablet 09/24/2023 Unknown ORAL AT BEDTIME 40 MILLIGRAMS 223735 RxNorm TAKE 40 MILLIGRAMS ORAL AT BEDTIME Levothyroxine 50MCG Oral Tablet 09/24/2023 Unknown ORAL ONCE A DAY 50 MCG 336738 RxNorm TAKE 50 MCG ORAL ONCE A DAY Pantoprazole Sodium 40 MG Oral Tablet, Delayed Release 09/24/2023 Unknown ORAL ONCE A DAY 40 MG 679843 RxNorm TAKE 40 MG ORAL ONCE A DAY MILADIS 3MG-0.02MG;No Streng Oral Tablet 09/24/2023 Unknown ORAL ONCE A DAY 1 unit(s) 482621 RxNorm TAKE 1 EACH ORAL ONCE A DAY Zofran 8MG Oral Tablet 09/24/2023 Unknown ORAL NEEDED TWICE A DAY 8 MILLIGRAMS 779326 RxNorm TAKE 8 MILLIGRAMS ORAL NEEDED TWICE A DAY Hospital Discharge Instructions Should you have any questions prior to discharge, please contact a member of your healthcare team. If you have left the hospital and have any questions, please contact your primary care physician. Reason For Referral No Data Found Allergies and Adverse Reactions Allergy Substance Reaction Severity Start Date Concern Status Co de Code System PENICILLIN Active Plan of Treatment MRI Brain WO Contrast (47267) 9 EGD 09/24/2023 Personal Care Team Section
--- NOTE | 2025-02-16 16:36 | PC.NURSE ---
pt is refusing IV and labs. pt was educated labs were needed. pt A&Ox4
[2025-02-16 17:16] LABS: Hematocrit 36.6 % (37.0-47.0); Hemoglobin 12.2 g/dL (12.0-15.0); Immature Granulocyte Percent A 0.2 % (0-0.5); Lymphocytes Absolute Auto 1.86 K/mm3 (0.9-3.2); Mean Corpuscular HGB Conc 33.3 g/dl (32-36); Mean Corpuscular Hemoglobin 29.2 pg (26-34); Mean Corpuscular Volume 87.6 fl (80-100); Nucleated Red Blood Cells Absolute Auto 0.000 K/mm3 (0.0-0.012); Nucleated Red Blood Cells Perc 0.0 % (0.0-0.2); Platelet Count Result 237 k/mm3 (150-375); Red Blood Count 4.18 M/mm3 (4.2-5.4); White Blood Count 12.1 K/mm3 (4.5-10.0)
[2025-02-16] MEDS: SODIUM CHLORIDE 0.9% IV 1,000 ML 999 ML IV CONT (17:22)
[2025-02-16] MEDS: PROCHLORPERAZINE EDISYLATE 10 MG/2 ML VIAL 5 MG IV PUSH (17:24)
[2025-02-16 17:35] LABS: Alanine Aminotransferase 52 U/L (6-35); Albumin Level 4.6 g/dL (3.5-5.1); Alkaline Phosphatase 67 U/L (38-126); Anion Gap 11 mmol/L (4-12); Aspartate Amino Transferase 36 U/L (14-36); Bilirubin,Total 0.8 mg/dL (0.2-1.3); Blood Urea Nitrogen 11 mg/dL (7-17); Calcium 9.8 mg/dL (8.4-10.2); Carbon Dioxide 23 mmol/L (22-30); Chloride 103 mmol/L (98-107); Estimated CRCL calculation 72 ml/min; Estimated Glomerular Filt Rate > 60; Glucose 79 mg/dL (65-110); Potassium 3.5 mmol/L (3.4-5.0); Sodium 137 mmol/L (137-145); Total Protein 7.8 g/dL (6.3-8.2)
--- OUTSIDE RECORDS SUMMARY | 2025-02-16 17:40 | XMS_ITS ---
Author Organization Unknown Address [address] [place] [phone] Phone Care Team Providers Care Paper Gluing Operator Name Role Phone TANIA SU Nica Attending Unavailable EVGENY WILL Primary Unavailable Immunization Immunization [...] Code Syst em Smoking History Former smoker 5231974 SNOMED CT Sex Female Medications Medication Start Date End Date Route Frequency Dose Code Code System Medication Instructions Home Meds Escitalopram 10MG Oral Tablet 09/24/2023 Unknown ORAL ONCE A DAY 10 MILLIGRAMS 978985 RxNorm TAKE 10 MILLIGRAMS ORAL ONCE A DAY Famotidine 40MG Oral Tablet 09/24/2023 Unknown ORAL AT BEDTIME 40 MILLIGRAMS 358422 RxNorm TAKE 40 MILLIGRAMS ORAL AT BEDTIME Levothyroxine 50MCG Oral Tablet 09/24/2023 Unknown ORAL ONCE A DAY 50 MCG 015097 RxNorm TAKE 50 MCG ORAL ONCE A DAY Pantoprazole Sodium 40 MG Oral Tablet, Delayed Release 09/24/2023 Unknown ORAL ONCE A DAY 40 MG 977780 RxNorm TAKE 40 MG ORAL ONCE A DAY MILADIS 3MG-0.02MG;No Streng Oral Tablet 09/24/2023 Unknown ORAL ONCE A DAY 1 unit(s) 162593 RxNorm TAKE 1 EACH ORAL ONCE A DAY Zofran 8MG Oral Tablet 09/24/2023 Unknown ORAL NEEDED TWICE A DAY 8 MILLIGRAMS 686752 RxNorm TAKE 8 MILLIGRAMS ORAL NEEDED TWICE [...] Plan of Treatment MRI Brain WO Contrast (07792) 9 EGD 09/24/2023 Personal Care Team Section
[2025-02-16] MEDS: SODIUM CHLORIDE 0.9% IV 1,000 ML 999 ML (18:02)
--- NOTE | 2025-02-16 18:25 | PC.NURSE ---
[address] Ventura at 1754.
--- NOTE | 2025-02-16 18:51 | ED.GENADULT ---
HPI - General Adult General Chief complaint: Psychiatric Symptoms <Mervin Ventura MD - Last Filed: 02/16/25 19:07> Stated complaint: NVD <Mervin Ventura MD - Last Filed: 02/16/25 19:07> Time Seen by Provider: 02/16/25 16:35 <Mervin Ventura MD - Last Filed: 02/16/25 19:07> Source: family <Mervin Ventura MD - Last Filed: 02/16/25 19:07> Mode of arrival: wheelchair <Mervin Ventura MD - Last Filed: 02/16/25 19:07> Limitations: clinical condition <Mervin Ventura MD - Last Filed: 02/16/25 19:07> History of Present Illness HPI narrative: 34-year-old with a history of bipolar disorder was brought in by family by wheelchair with a complaint of having suicidal ideation knee. Sister is the main historian. She comes stated that for the past few days she has been in a manic phase and since this morning she has been quite depressed and expressed suicidal thought. She also mentions that she has been having nausea, vomiting and diarrhea. And has not been taking her medications for past few days. She is on lithium 600 mg daily. <Mervin Ventura MD - Last Filed: 02/16/25 19:07> Onset (ago): week(s) (1) <Mervin Ventura MD - Last Filed: 02/16/25 19:07> Severity: moderate <Mervin Ventura MD - Last Filed: 02/16/25 19:07> Associated symptoms: nausea/vomiting and weakness <Mervin Ventura MD - Last Filed: 02/16/25 19:07> Treatments prior to arrival: none <Mervin Ventura MD - Last Filed: 02/16/25 19:07> Related Data Home medications: Home Medications ?Medication ?Instructions ?Recorded ?Confirmed ?Last Taken ?Type levothyroxine 50 mcg tablet 50 mcg PO DAILY 02/11/22 06/02/24 04/24/24 History multivitamin 1 tablet PO DAILY 10/16/22 06/02/24 04/20/24 History magnesium 200 mg tablet 200 mg PO DAILY 04/17/24 06/02/2404/20/25 History amitriptyline 25 mg tablet 25 mg PO DAILY 05/18/24 06/02/24 Unknown History famotidine 40 mg tablet 40 mg PO DAILY 05/18/24 06/02/24 Unknown History pantoprazole 40 mg tablet,delayed 40 mg PO QAM 05/18/24 06/02/24 Unknown History release <Mervin Ventura MD - Last Filed: 02/16/25 19:07> Allergies/adverse reactions: Allergies Allergy/AdvReac Type Severity Reaction Status Date / Time Penicillins Allergy Unknown Hives / Verified 02/16/25 16:22 Red Face <Mervin Ventura MD - Last Filed: 02/16/25 19:07> Review of Systems Review of Systems: ROS unobtainable: Yes unobtainable due to medical condition <Mervin Ventura MD - Last Filed: 02/16/25 19:07> PMFSH Past Medical History Medical History: Medical History Frequent headaches Anxiety ASCUS with positive high risk HPV Abnormal Pap smear of cervix 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 De La O History of colposcopy (11/09/22) CX BX HSIL/ CIN3 H/O LEEP (01/29/23) done with [facility] H/O hemorrhoidectomy Excisional hemorrhoidectomy x2 on 10/26/22 SAW History of colposcopy 09/29/2022 colposcopy - EDUARD 3 H/O gynecological procedure (01/29/23) Mirena Iud removal / reinsertion 10/12/2018 Mirena iud insertion <Mervin Ventura MD - Last Filed: 02/16/25 19:07> Family History Family History: Family History Mother Diabetes mellitus Grandparent Carcinoma of colon Heart disease Cerebrovascular accident Osteoporosis Malignant tumor of pancreas Malignant neoplasm of liver <Mervin Ventura MD - Last Filed: 02/16/25 19:07> Social History Social History: Social History Smoking packs per day: 0.5 Smoking cigarettes per day: 10.0 Years smoked: 8 Smoking pack-years: 4.00 Smoking status: Former smoker Tobacco type: cigarettes Second hand tobacco smoke exposure: No Smoking end date: 10/17/19 Additional smoking assessment comments: STOPPED DEC 2020 Alcohol intake: current Alcohol use details: occasionally 1-2 a month Substance use: never Substance use type: does not use Lack of Transportation: No Lack of Food: Never True Current Housing: Decline to Answer Concerned About Future Housing: Decline to Answer Difficulty Paying Gas/Electric Bills: Decline to Answer Difficulty Paying for Meds: Decline to Answer Currently Unemployed: Decline to Answer Education: Decline to Answer Difficulty w/ Childcare or Family Care: Decline to Answer Living arrangements: with family Additional living arrangements comments: 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 EYES: PERRLA and EOMI. ENT: Nares clear, no rhinorrhea or epistaxis. Mucous membranes moist. NECK: Supple. CHEST: Clear to auscultation. No respiratory distress. HEART: Regular rate and rhythm. No murmur heard. Normal peripheral pulses. ABDOMEN: Soft, nontender, nondistended, normal active bowel sounds. EXTREMITIES: Normal range of motion. No edema. SKIN: Warm, dry, no rash. NEURO: No focal deficits. Alert and oriented PSYCH: Normal mood and affect. <Mervin Ventura MD - Last Filed: 02/16/25 19:07> Course Course Emergency Course: Patient was constantly having mom nausea and vomiting and retching I did give her IV Compazine 5 mg a along with Benadryl 25 mg with IV fluids patient had been having intermittent episodes of violent outburst i did give her Ketamine 50 mg slow IV push , pt became extremely agitated and was screaming .after a 20 or 30 mins ,she became quite and sleeping .will consult behavioral health. I did discuss with pt psychiatric nurse practitioner recommends to be transfer to [facility] Pt is medically stable for psychiatric evaluation <Mervin Ventura MD - Last Filed: 02/16/25 19:07> Patient was constantly having mom nausea and vomiting and retching I did give her IV Compazine 5 mg a along with Benadryl 25 mg with IV fluids patient had been having intermittent episodes of violent outburst i did give her Ketamine 50 mg slow IV push , pt became extremely agitated and was screaming .after a 20 or 30 mins ,she became quite and sleeping .will consult behavioral health. I did discuss with pt psychiatric nurse practitioner recommends to be transfer to [facility] Pt is medically stable for psychiatric evaluation Patient evaluated by Psychiatry, agrees patient meets criteria for inpatient psychiatric hospitalization, patient willing to go voluntarily, working on placement. Patient accepted for transfer by Dr. Lawrence at [facility]. <Dejan John DO - Last Filed: 02/17/25 06:40> Vital Signs Vital signs: Vital Signs Temperature 98.2 F 02/16/25 15:47 Pulse Rate 80 02/16/25 15:47 Respiratory Rate 14 02/16/25 15:47 Blood Pressure 125/61 02/16/25 15:47 Pulse Oximetry 99 02/16/25 15:47 Temperature 98.2 F 02/16/25 15:47 Pulse Rate 79 02/17/25 02:15 Respiratory Rate 20 02/17/25 02:15 Blood Pressure 124/72 02/17/25 02:15 Pulse Oximetry 100 02/17/25 02:15 <Mervin Ventura MD - Last Filed: 02/16/25 19:07> Vital Signs Temperature 98.2 F 02/16/25 15:47 Pulse Rate 80 02/16/25 15:47 Respiratory Rate 14 02/16/25 15:47 Blood Pressure 125/61 02/16/25 15:47 Pulse Oximetry 99 02/16/25 15:47 Temperature 98.2 F 02/16/25 15:47 Pulse Rate 79 02/17/25 02:15 Respiratory Rate 20 02/17/25 02:15 Blood Pressure 124/72 02/17/25 02:15 Pulse Oximetry 100 02/17/25 02:15 <Dejan John DO - Last Filed: 02/17/25 06:40> MDM Differential Diagnosis Differential Diagnosis: Acute psychosis, medication noncompliance, bipolar, schizophrenia, substance abuse, other acute behavior health disturbances. <Dejan John DO - Last Filed: 02/17/25 06:40> Lab Data Result diagrams: 02/16/25 17:10 02/16/25 17:10 <Mervin Ventura MD - Last Filed: 02/16/25 19:07> Labs: Lab Results 02/16/25 02/16/25 02/16/25 Range/Units 17:10 20:19 20:42 WBC 12.1 H (4.5-10.0) K/mm3 RBC 4.18 L (4.2-5.4) M/mm3 Hgb 12.2 (12.0-15.0) g/dL Hct 36.6 L (37.0-47.0) % MCV 87.6 (80-100) fl MCH 29.2 (26-34) pg MCHC 33.3 (32-36) g/dl RDW 12.2 (11.5-14.5) % Plt Count 237 (150-375) k/mm3 MPV 10.3 (7.4-10.4) fl Immature Gran % (Auto) 0.2 (0-0.5) % Neut % (Auto) 79.2 H (45.5-73.1) % Lymph % (Auto) 15.4 L (18.3-44.2) % [place] % (Auto) 4.8 (2.6-8.5) % Eos % (Auto) 0.2 (0-4.4) % Baso % (Auto) 0.2 (0.2-1.2) % Lymph # (Auto) 1.86 (0.9-3.2) K/mm3 [place] # (Auto) 0.6 (0.1-0.6) K/mm3 Eos # (Auto) 0.0 (0-0.3) K/mm3 Baso # (Auto) 0.0 (0.0-0.1) K/mm3 Abs Immat Gran (auto) 0.03 (0.00-0.031) K/mm3 Absolute Neuts (auto) 9.6 H (1.3-6.7) K/mm3 Absolute Nucleated RBC 0.000 (0.0-0.012) K/mm3 Nucleated RBC % 0.0 (0.0-0.2) % Sodium 137 (137-145) mmol/L Potassium 3.5 (3.4-5.0) mmol/L Chloride 103 (98-107) mmol/L Carbon Dioxide 23 (22-30) mmol/L Anion Gap 11 (4-12) mmol/L BUN 11 (7-17) mg/dL Creatinine 0.76 (0.7-1.0) mg/dL Estim Creat Clear Calc 72 ml/min Estimated GFR > 60 (59 - ) Glucose 79 (65-110) mg/dL Lactic Acid 1.4 (0.7-2.0) mmol/L Calcium 9.8 (8.4-10.2) mg/dL Total Bilirubin 0.8 (0.2-1.3) mg/dL AST 36 (14-36) U/L ALT 52 H (6-35) U/L Alkaline Phosphatase 67 (38-126) U/L Total Protein 7.8 (6.3-8.2) g/dL Albumin 4.6 (3.5-5.1) g/dL TSH (Reflex) 4.960 H (0.465-4.68) uIU/mL Free T4 1.23 (0.78-2.19) ng/dL Total T3 0.89 (0.82-1.58) NG/ML Serum HCG, Qual Negative Urine Color Yellow (Yellow) Urine Appearance Clear (Clear) Urine pH 5.0 (5.0-9.0) Ur Specific [place] 1.011 (1.001-1.035) Urine Protein Negative (Negative) mg/dL Urine Glucose (UA) Negative (Negative) mg/dL Urine Ketones 3+ H (Negative) mg/dL Ur Blood (Man) Non-hemolyzed trace H (Negative) Urine Nitrate Negative (Negative) Urine Bilirubin Negative (Negative) Urine Urobilinogen 0.2 (<2.0) mg/dL Leukocyte Esterase Rfl Negative (Negative) MARC/UL Urine RBC 0-2 (0-2) /hpf Urine WBC 0-5 (0-3) /hpf Ur Squamous Epith Cells None seen (Few) /hpf Urine Bacteria None seen /hpf Urine Casts 0-2 POC Urine HCG, Qual (Negative) Salicylates < 1.0 L (2-20) mg/dL Urine Opiates Screen Negative (Negative) Urine Methadone Screen Negative (Negative) Acetaminophen < 10 L (10-30) ug/mL Ur Barbiturates Screen Negative (Negative) Ur Phencyclidine Scrn Negative (Negative) Ur Amphetamine Screen Negative (Negative) U Benzodiazepines Scrn Negative (Negative) [place] < 0.2 L (0.6-1.2) mmol/L Urine Cocaine Screen Negative (Negative) U Cannabinoids Screen Positive A (Negative) Ethyl Alcohol < 10 (<10) mg/dL Influenza A (RT-PCR) Negative (Negative) Influenza B (RT-PCR) Negative (Negative) RSV (RT-PCR) Negative (Negative) SARS-CoV-2 RNA (RT-PCR) Negative (Negative) 02/16/25 Range/Units 20:47 WBC (4.5-10.0) K/mm3 RBC (4.2-5.4) M/mm3 Hgb (12.0-15.0) g/dL Hct (37.0-47.0) % MCV (80-100) fl MCH (26-34) pg MCHC (32-36) g/dl RDW (11.5-14.5) % Plt Count (150-375) k/mm3 MPV (7.4-10.4) fl Immature Gran % (Auto) (0-0.5) % Neut % (Auto) (45.5-73.1) % Lymph % (Auto) (18.3-44.2) % [place] % (Auto) (2.6-8.5) % Eos % (Auto) (0-4.4) % Baso % (Auto) (0.2-1.2) % Lymph # (Auto) (0.9-3.2) K/mm3 [place] # (Auto) (0.1-0.6) K/mm3 Eos # (Auto) (0-0.3) K/mm3 Baso # (Auto) (0.0-0.1) K/mm3 Abs Immat Gran (auto) (0.00-0.031) K/mm3 Absolute Neuts (auto) (1.3-6.7) K/mm3 Absolute Nucleated RBC (0.0-0.012) K/mm3 Nucleated RBC % (0.0-0.2) % Sodium (137-145) mmol/L Potassium (3.4-5.0) mmol/L Chloride (98-107) mmol/L Carbon Dioxide (22-30) mmol/L Anion Gap (4-12) mmol/L BUN (7-17) mg/dL Creatinine (0.7-1.0) mg/dL Estim Creat Clear Calc ml/min Estimated GFR (59 - ) Glucose (65-110) mg/dL Lactic Acid (0.7-2.0) mmol/L Calcium (8.4-10.2) mg/dL Total Bilirubin (0.2-1.3) mg/dL AST (14-36) U/L ALT (6-35) U/L Alkaline Phosphatase (38-126) U/L Total Protein (6.3-8.2) g/dL Albumin (3.5-5.1) g/dL TSH (Reflex) (0.465-4.68) uIU/mL Free T4 (0.78-2.19) ng/dL Total T3 (0.82-1.58) NG/ML Serum HCG, Qual Urine Color (Yellow) Urine Appearance (Clear) Urine pH (5.0-9.0) Ur Specific [place] (1.001-1.035) Urine Protein (Negative) mg/dL Urine Glucose (UA) (Negative) mg/dL Urine Ketones (Negative) mg/dL Ur Blood (Man) (Negative) Urine Nitrate (Negative) Urine Bilirubin (Negative) Urine Urobilinogen (<2.0) mg/dL Leukocyte Esterase Rfl (Negative) MARC/UL Urine RBC (0-2) /hpf Urine WBC (0-3) /hpf Ur Squamous Epith Cells (Few) /hpf Urine Bacteria /hpf Urine Casts POC Urine HCG, Qual Negative (Negative) Salicylates (2-20) mg/dL Urine Opiates Screen (Negative) Urine Methadone Screen (Negative) Acetaminophen (10-30) ug/mL Ur Barbiturates Screen (Negative) Ur Phencyclidine Scrn (Negative) Ur Amphetamine Screen (Negative) U Benzodiazepines Scrn (Negative) [place] (0.6-1.2) mmol/L Urine Cocaine Screen (Negative) U Cannabinoids Screen (Negative) Ethyl Alcohol (<10) mg/dL Influenza A (RT-PCR) (Negative) Influenza B (RT-PCR) (Negative) RSV (RT-PCR) (Negative) SARS-CoV-2 RNA (RT-PCR) (Negative) <Mervin Ventura MD - Last Filed: 02/16/25 19:07> Lab Results 02/16/25 02/16/25 02/16/25 Range/Units 17:10 20:19 20:42 WBC 12.1 H (4.5-10.0) K/mm3 RBC 4.18 L (4.2-5.4) M/mm3 Hgb 12.2 (12.0-15.0) g/dL Hct 36.6 L (37.0-47.0) % MCV 87.6 (80-100) fl MCH 29.2 (26-34) pg MCHC 33.3 (32-36) g/dl RDW 12.2 (11.5-14.5) % Plt Count 237 (150-375) k/mm3 MPV 10.3 (7.4-10.4) fl Immature Gran % (Auto) 0.2 (0-0.5) % Neut % (Auto) 79.2 H (45.5-73.1) % Lymph % (Auto) 15.4 L (18.3-44.2) % [place] % (Auto) 4.8 (2.6-8.5) % Eos % (Auto) 0.2 (0-4.4) % Baso % (Auto) 0.2 (0.2-1.2) % Lymph # (Auto) 1.86 (0.9-3.2) K/mm3 [place] # (Auto) 0.6 (0.1-0.6) K/mm3 Eos # (Auto) 0.0 (0-0.3) K/mm3 Baso # (Auto) 0.0 (0.0-0.1) K/mm3 Abs Immat Gran (auto) 0.03 (0.00-0.031) K/mm3 Absolute Neuts (auto) 9.6 H (1.3-6.7) K/mm3 Absolute Nucleated RBC 0.000 (0.0-0.012) K/mm3 Nucleated RBC % 0.0 (0.0-0.2) % Sodium 137 (137-145) mmol/L Potassium 3.5 (3.4-5.0) mmol/L Chloride 103 (98-107) mmol/L Carbon Dioxide 23 (22-30) mmol/L Anion Gap 11 (4-12) mmol/L BUN 11 (7-17) mg/dL Creatinine 0.76 (0.7-1.0) mg/dL Estim Creat Clear Calc 72 ml/min Estimated GFR > 60 (59 - ) Glucose 79 (65-110) mg/dL Lactic Acid 1.4 (0.7-2.0) mmol/L Calcium 9.8 (8.4-10.2) mg/dL Total Bilirubin 0.8 (0.2-1.3) mg/dL AST 36 (14-36) U/L ALT 52 H (6-35) U/L Alkaline Phosphatase 67 (38-126) U/L Total Protein 7.8 (6.3-8.2) g/dL Albumin 4.6 (3.5-5.1) g/dL TSH (Reflex) 4.960 H (0.465-4.68) uIU/mL Free T4 1.23 (0.78-2.19) ng/dL Total T3 0.89 (0.82-1.58) NG/ML Serum HCG, Qual Negative Urine Color Yellow (Yellow) Urine Appearance Clear (Clear) Urine pH 5.0 (5.0-9.0) Ur Specific [place] 1.011 (1.001-1.035) Urine Protein Negative (Negative) mg/dL Urine Glucose (UA) Negative (Negative) mg/dL Urine Ketones 3+ H (Negative) mg/dL Ur Blood (Man) Non-hemolyzed trace H (Negative) Urine Nitrate Negative (Negative) Urine Bilirubin Negative (Negative) Urine Urobilinogen 0.2 (<2.0) mg/dL Leukocyte Esterase Rfl Negative (Negative) MARC/UL Urine RBC 0-2 (0-2) /hpf Urine WBC 0-5 (0-3) /hpf Ur Squamous Epith Cells None seen (Few) /hpf Urine Bacteria None seen /hpf Urine Casts 0-2 POC Urine HCG, Qual (Negative) Salicylates < 1.0 L (2-20) mg/dL Urine Opiates Screen Negative (Negative) Urine Methadone Screen Negative (Negative) Acetaminophen < 10 L (10-30) ug/mL Ur Barbiturates Screen Negative (Negative) Ur Phencyclidine Scrn Negative (Negative) Ur Amphetamine Screen Negative (Negative) U Benzodiazepines Scrn Negative (Negative) [place] < 0.2 L (0.6-1.2) mmol/L Urine Cocaine Screen Negative (Negative) U Cannabinoids Screen Positive A (Negative) Ethyl Alcohol < 10 (<10) mg/dL Influenza A (RT-PCR) Negative (Negative) Influenza B (RT-PCR) Negative (Negative) RSV (RT-PCR) Negative (Negative) SARS-CoV-2 RNA (RT-PCR) Negative (Negative) 02/16/25 Range/Units 20:47 WBC (4.5-10.0) K/mm3 RBC (4.2-5.4) M/mm3 Hgb (12.0-15.0) g/dL Hct (37.0-47.0) % MCV (80-100) fl MCH (26-34) pg MCHC (32-36) g/dl RDW (11.5-14.5) % Plt Count (150-375) k/mm3 MPV (7.4-10.4) fl Immature Gran % (Auto) (0-0.5) % Neut % (Auto) (45.5-73.1) % Lymph % (Auto) (18.3-44.2) % [place] % (Auto) (2.6-8.5) % Eos % (Auto) (0-4.4) % Baso % (Auto) (0.2-1.2) % Lymph # (Auto) (0.9-3.2) K/mm3 [place] # (Auto) (0.1-0.6) K/mm3 Eos # (Auto) (0-0.3) K/mm3 Baso # (Auto) (0.0-0.1) K/mm3 Abs Immat Gran (auto) (0.00-0.031) K/mm3 Absolute Neuts (auto) (1.3-6.7) K/mm3 Absolute Nucleated RBC (0.0-0.012) K/mm3 Nucleated RBC % (0.0-0.2) % Sodium (137-145) mmol/L Potassium (3.4-5.0) mmol/L Chloride (98-107) mmol/L Carbon Dioxide (22-30) mmol/L Anion Gap (4-12) mmol/L BUN (7-17) mg/dL Creatinine (0.7-1.0) mg/dL Estim Creat Clear Calc ml/min Estimated GFR (59 - ) Glucose (65-110) mg/dL Lactic Acid (0.7-2.0) mmol/L Calcium (8.4-10.2) mg/dL Total Bilirubin (0.2-1.3) mg/dL AST (14-36) U/L ALT (6-35) U/L Alkaline Phosphatase (38-126) U/L Total Protein (6.3-8.2) g/dL Albumin (3.5-5.1) g/dL TSH (Reflex) (0.465-4.68) uIU/mL Free T4 (0.78-2.19) ng/dL Total T3 (0.82-1.58) NG/ML Serum HCG, Qual Urine Color (Yellow) Urine Appearance (Clear) Urine pH (5.0-9.0) Ur Specific [place] (1.001-1.035) Urine Protein (Negative) mg/dL Urine Glucose (UA) (Negative) mg/dL Urine Ketones (Negative) mg/dL Ur Blood (Man) (Negative) Urine Nitrate (Negative) Urine Bilirubin (Negative) Urine Urobilinogen (<2.0) mg/dL Leukocyte Esterase Rfl (Negative) MARC/UL Urine RBC (0-2) /hpf Urine WBC (0-3) /hpf Ur Squamous Epith Cells (Few) /hpf Urine Bacteria /hpf Urine Casts POC Urine HCG, Qual Negative (Negative) Salicylates (2-20) mg/dL Urine Opiates Screen (Negative) Urine Methadone Screen (Negative) Acetaminophen (10-30) ug/mL Ur Barbiturates Screen (Negative) Ur Phencyclidine Scrn (Negative) Ur Amphetamine Screen (Negative) U Benzodiazepines Scrn (Negative) [place] (0.6-1.2) mmol/L Urine Cocaine Screen (Negative) U Cannabinoids Screen (Negative) Ethyl Alcohol (<10) mg/dL Influenza A (RT-PCR) (Negative) Influenza B (RT-PCR) (Negative) RSV (RT-PCR) (Negative) SARS-CoV-2 RNA (RT-PCR) (Negative) <Dejan John DO - Last Filed: 02/17/25 06:40> Discharge Plan Discharge Clinical Impression: Bipolar 1 disorder Depression Qualifiers: Depression Type: unspecified Qualified Code(s): F32.A - Depression, unspecified <Mervin Ventura MD - Last Filed: 02/16/25 19:07> Patient Disposition: Psychiatric Hosp <Mervin Ventura MD - Last Filed: 02/16/25 19:07> Condition: Stable <Mervin Ventura MD - Last Filed: 02/16/25 19:07> Patient Language: Slovenian <Mervin Ventura MD - Last Filed: 02/16/25 19:07> Prescriptions: No Action levothyroxine 50 mcg tablet 50 mcg PO DAILY amitriptyline 25 mg tablet 25 mg PO DAILY famotidine 40 mg tablet 40 mg PO DAILY pantoprazole 40 mg tablet,delayed release (DR/EC) 40 mg PO QAM multivitamin Tablet 1 tablet PO DAILY magnesium 200 mg tablet 200 mg PO DAILY escitalopram oxalate 10 mg tablet 10 mg PO DAILY Qty: 30 3RF norgestimate-ethinyl estradiol [Sprintec (28)] 0.25-0.035 mg tablet 1 tablet PO DAILY Qty: 112 1RF Rx Instructions: take 1 tab by mouth daily skipping placebo pills and taking active pills continuously <Mervin Ventura MD - Last Filed: 02/16/25 19:07> Follow-up/Referrals: Hunter Parikh MD [Primary Care Provider, Internal Medicine] <Mervin Ventura MD - Last Filed: 02/16/25 19:07> Time of Disposition: 06:10 <Mervin Ventura MD - Last Filed: 02/16/25 19:07> 06:10 <Dejan John DO - Last Filed: 02/17/25 06:40> Sign Out Sign Out Data: Patient Sign Out occurred on 02/16/25 at 19:12. Patient's care was discussed, and care was transferred from Mervin Ventura MD to Dejan John DO. <Mervin Ventura MD - Last Filed: 02/16/25 19:07>
--- NOTE | 2025-02-16 19:18 | PC.NURSE ---
unable to clear room out for SI precautions due to pt having nausea vomiting, pt needs monitoring until medically cleared. this RN will clear the room once pt is medically cleared by EDP. EDP aware.
--- NOTE | 2025-02-16 19:58 | PC.NURSE ---
EDP told charge nurse pt has been medically cleared. Charge nurse called crisis for pt evaluation without notifying this RN. pt has not had a covid test or urine sample at this time. pt is sleeping due to sedative. crisis arrived to facility at 1951. This RN talked to crisis and stated pt has not been medically cleared and is sleeping. crisis stated pt has to be awake and alert for at least an hour before crisis will come out and evaluate pt. crisis has left the facility and this RN will call when pt is medically cleared.
[2025-02-16 20:48] LABS: Lithium < 0.2 mmol/L (0.6-1.2)
[2025-02-16 20:50] LABS: BEDSIDEPREGUCG Negative (Negative)
[2025-02-16 20:54] LABS: Add Urine Microscopic? NO; Appearance Urine Clear (Clear); Glucose Urine UA Negative (Negative); Leukocyte Esterase Ur Negative LEU/UL (Negative); Nitrate Urine Negative (Negative); Non Pathogenic Casts 0-2; Specific Grav Ur 1.011 (1.001-1.035)
[2025-02-16 20:59] LABS: Influenza A QL RT-PCR Negative (Negative); Influenza B QL RT-PCR Negative (Negative); RSV RNA, RT-PCR Negative (Negative); SARS-CoV-2 RNA PCR Negative (Negative)
[2025-02-16 21:11] LABS: SPREG INTERNAL CONTROL Positive; Serum Qual hCG Negative
[2025-02-16 21:17] LABS: Acetaminophen < 10 ug/mL (10-30); Salicylate < 1.0 mg/dL (2-20)
--- NOTE | 2025-02-16 21:32 | PC.NURSE ---
LR ordered by Dr. John was not given. pt has had 2 liters of NS prior to this order. notified and okay with order discontinuation.
[2025-02-16 21:44] LABS: Cannabinoid Screen Urine Positive (Negative)
[2025-02-16 21:48] LABS: Thyroid Stimulating Hormone Reflex 4.960 uIU/mL (0.465-4.68)
[2025-02-16 22:26] LABS: Free T4 Free Thyroxine Reflex 1.23 ng/dL (0.78-2.19)
[2025-02-16 23:17] LABS: Total Triiodothyronine (T3) 0.89 NG/ML (0.82-1.58)
[2025-02-17] VITALS (12 sets, daily range): BP systolic 101–124; BP diastolic 59–72; PULSE 78–93; RESP 13–23; TEMP 36.7; O2SAT 99–100
--- NOTE | 2025-02-17 02:23 | PC.NURSE ---
This RN re-assessed pt [place] and pt states she does not feel suicidal at this time, but she has a hx of feeling suicidal so that feeling might change. pt agreed to let this RN know if that feeling changes.
--- NOTE | 2025-02-17 03:22 | PC.NURSE ---
This RN spoke to Adriane SANDOVAL from [facility] and requested UDS, urine, and covid to be faxed.
--- NOTE | 2025-02-17 04:12 | PC.NURSE ---
This RN received a call from [facility] and re-faxed labwork that they did not receive.
--- NOTE | 2025-02-17 04:14 | PC.NURSE ---
This RN spoke to [facility] and faxed over needed paperwork.
--- NOTE | 2025-02-17 04:49 | PC.NURSE ---
This RN received acceptance from [facility]. this RN spoke to Mary Lou SANDOVAL and was accepted by Dr. Wagoner. Pt will be going to room 70-A. report number is [phone]. transport set up for 0930.
--- NOTE | 2025-02-17 04:51 | PC.NURSE ---
Richard called this RN and got repotr on pt. this RN spoke to Jordana SANDOVAL and will receive a call back if pt accepted.
--- NOTE | 2025-02-17 04:52 | PC.NURSE ---
Pt sister came out to Nurse's station and states that pt has been to [facility] before and did not have a good time and if there are other options they would like for her to go to [facility]. At this time [facility] has not called and states they are full and can try again at 0930. Pt sister reports that they have called them and were told that they should have an open bed at 0930 . pt sister states she will talk to father and see what he thinks.
--- NOTE | 2025-02-17 05:10 | PC.NURSE ---
This RN called [facility] and asked if they have any beds available and was told that d/c happen in the morning and to call around 0900.
--- NOTE | 2025-02-17 05:39 | PC.NURSE ---
Addendum entered by Melba Yu, RN 02/17/25 06:10: Dr. Lawrence Original Note: [id number]- this RN spoke with Adriane SANDOVAL from [facility] in [place]. Pt was accepted by Dr. Lawrence and will go to room 105-2. 6106- this RN spoke with pt sister, mom and pt and discussed which facility they would like to have pt fo to out of the accepting facilities of [facility] and [facility] and was informed they would like [place] over [facility]. [id number]-this RN called [facility] and informed of cancelation of acceptance. [id number]- this RN called Yolanda from [facility] and gave report on pt ([phone]). transport set up for 0930.
--- NOTE | 2025-02-17 07:17 | PC.NURSE ---
breakfast ordered for pt.
== END 2025-02-17 09:20 ==
PROVIDERS: Family Medicine; Emergency Provider Student in an Organized Health Care Education/Training Program; PCP Internal Medicine
DX: F32.A Depression, unspecified (principal); R45.851 Suicidal ideations; E06.3 Autoimmune thyroiditis; F41.9 Anxiety disorder, unspecified; Z87.891 Personal history of nicotine dependence; Z20.822 Contact with and (suspected) exposure to COVID-19
CPT/HCPCS: 36415; 80053; 80143; 80178; 80179; 80307; 81003; 81025; 82077; 83605; 84439; 84443; 84480; 84703; 85025; 87637; 96361; 96374; 96375; 99284; 99285; J0780; J1200; J7030

== ENCOUNTER 2025-02-23 04:02 | Emergency (ER) | payer OTHER, SELFPAY ==
[2025-02-23 04:04] VITALS: BP 132/78; PULSE 108; RESP 18; O2SAT 98
--- NOTE | 2025-02-23 04:25 | PC.NURSE ---
Pt in triage handing money to other patients and visitors in waiting room.
--- NOTE | 2025-02-23 06:11 | ED.GENADULT ---
HPI - General Adult General Chief complaint: Unspecified Stated complaint: dehydration Time Seen by Provider: 02/23/25 05:43 History of Present Illness HPI narrative: This is a 34-year-old female with history of bipolar disorder who presents the ED for anxiety. Patient states that she just got released yesterday from a psych facility after she was admitted for suicidal ideations on a depressive episode of her bipolar. After she left, she went to multiple clubs and has been winding down and feels like she is going into a depressive episode again. Denies suicidal thoughts, homicidal thoughts, hallucinations. She was taking her lithium all week but did not take today's dose. She does not want to take it anymore. She has multiple appointments today with her PCP, psychiatrist, psychologist. Related Data Home Medications ?Medication ?Instructions ?Recorded ?Confirmed ?Last Taken ?Type levothyroxine 50 mcg tablet 50 mcg PO DAILY 02/11/22 06/02/24 04/24/24 History multivitamin 1 tablet PO DAILY 10/16/22 06/02/24 04/20/24 History magnesium 200 mg tablet 200 mg PO DAILY 04/17/24 06/02/24 04/20/24 History amitriptyline 25 mg tablet 25 mg PO DAILY 05/18/24 06/02/24 Unknown History famotidine 40 mg tablet 40 mg PO DAILY 05/18/24 06/02/24 Unknown History pantoprazole 40 mg tablet,delayed 40 mg PO QAM 05/18/24 06/02/24 Unknown History release Allergies Allergy/AdvReac Type Severity Reaction Status Date / Time Penicillins Allergy Unknown Hives / Verified 02/23/25 04:04 Red Face Review of Systems Review of Systems: Gen.: Denies fevers or chills Eyes: Denies eye pain or visual change ENT: Denies congestion Respiratory: Denies shortness of breath or cough CV: Denies chest pain or palpitations GI: Denies abdominal pain nausea, emesis or diarrhea denies burning, urgency, frequency or hematuria Musculoskeletal: Denies back pain or muscle pain Neuro: Denies numbness, tingling, weakness or focal weakness Skin: Denies rash Except as documented, all other systems reviewed and negative PMFSH Past Medical History Medical History Frequent headaches Anxiety ASCUS with positive high risk HPV Abnormal Pap smear of cervix 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 De La O History of colposcopy (11/09/22) CX BX HSIL/ CIN3 H/O LEEP (01/29/23) done with [facility] H/O hemorrhoidectomy Excisional hemorrhoidectomy x2 on 10/26/22 SAW History of colposcopy 09/29/2022 colposcopy - EDUARD 3 H/O gynecological procedure (01/29/23) Mirena Iud removal / reinsertion 10/12/2018 Mirena iud insertion 01/29/ Family History Family History Mother Diabetes mellitus Grandparent Carcinoma of colon Heart disease Cerebrovascular accident Osteoporosis Malignant tumor of pancreas Malignant neoplasm of liver Social History Social History Smoking packs per day: 0.5 Smoking cigarettes per day: 10.0 Years smoked: 8 Smoking pack-years: 4.00 Smoking status: Former smoker Tobacco type: cigarettes Second hand tobacco smoke exposure: No Smoking end date: 10/17/19 Additional smoking assessment comments: STOPPED DEC 2020 Alcohol intake: current Alcohol use details: occasionally 1-2 a month Substance use: never Substance use type: does not use Lack of Transportation: No Lack of Food: Never True Current Housing: Decline to Answer Concerned About Future Housing: Decline to Answer Difficulty Paying Gas/Electric Bills: Decline to Answer Difficulty Paying for Meds: Decline to Answer Currently Unemployed: Decline to Answer Education: Decline to Answer Difficulty w/ Childcare or Family Care: Decline to Answer Living arrangements: with family Additional living arrangements comments: 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 Gender identity (if verbalized by the patient): Female Sexual Orientation (if Verbalized by the Patient): Straight or Heterosexual Spiritual care concerns: No Exam Narrative: APPEARANCE: No acute distress, nontoxic, resting in bed EYES: EOMI HEENT: Normocephalic, atraumatic, OMM RESPIRATORY: No respiratory distress Clear to auscultation bilaterally with no rhonchi wheezing or rales. CARDIOVASCULAR: Regular rate and rhythm without murmurs rubs or gallops. ABDOMINAL: Soft, nontender, nondistended, no rebound or guarding MUSCULOSKELETAl: Moves all extremities. No clubbing, cyanosis or edema. NEURO: Awake and alert. Following commands, speech normal, no focal deficits SKIN:: Warm, dry. No rashes lesions or abrasions PSYCHIATRIC: Intermittently tearful Course Vital Signs Vital signs: Vital Signs Pulse Rate 108 H 02/23/25 04:04 Respiratory Rate 18 02/23/25 04:04 Blood Pressure 132/78 02/23/25 04:04 Pulse Oximetry 98 02/23/25 04:04 Oxygen Delivery Room Air 02/23/25 04:04 Temperature 98 F 02/23/25 08:03 Pulse Rate 80 02/23/25 08:34 Respiratory Rate 20 02/23/25 08:34 Blood Pressure 121/76 02/23/25 08:34 Pulse Oximetry 100 02/23/25 08:34 Oxygen Delivery Room Air 02/23/25 04:04 [facility] MDM Narrative Medical decision making narrative: 34-year-old female Presenting for mental health evaluation. On initial evaluation patient was in no acute distress afebrile, hemodynamic stable. No active suicidal thoughts or homicidal thoughts or hallucinations Differentials include but are not limited to: Bipolar disorder, depression, substance abuse Notable exam findings: No racing thoughts, no pressured speech, no suicidal or homicidal thoughts Had a long discussion with the patient regarding her prior diagnoses of bipolar disorder. She has recently had been diagnosed with this and has been with him for couple months and was just discharged from mental health facility today. She is still like she was having some manic behaviors earlier today but this seems to have subsided at this time. She has multiple follow-up appointments today with her PCP, psychiatrist and psychologist. Patient has no requirements for a Psychiatric clearly the right side at this time. It is in her best interest that she go to his were appointments and I heavily encouraged her to go knees. Patient is agreeable to this plan. Given strict return precautions. Differential Diagnosis Differential Diagnosis: Bipolar disorder, depression, substance abuse Discharge Plan Discharge Clinical Impression: Bipolar disorder Qualifiers: Active/Remission status: currently active Current bipolar episode type: mixed Current episode severity: moderate Qualified Code(s): F31.62 - Bipolar disorder, current episode mixed, moderate Constipation Qualifiers: Constipation type: unspecified constipation type Qualified Code(s): K59.00 - Constipation, unspecified Patient Disposition: Home Condition: Stable Instructions: Antibiotic Form, Bipolar Disorder (ED) Additional Instructions: Go to your appointment today as discussed. Return to the ED for any new or worsening symptoms. Patient Language: Khmer Prescriptions: New polyethylene glycol 3350 [Gavilax] 17 gram/dose powder 17 g PO DAILY Qty: 238 0RF docusate sodium 100 mg capsule 100 mg PO DAILY Qty: 30 0RF No Action levothyroxine 50 mcg tablet 50 mcg PO DAILY amitriptyline 25 mg tablet 25 mg PO DAILY famotidine 40 mg tablet 40 mg PO DAILY pantoprazole 40 mg tablet,delayed release (DR/EC) 40 mg PO QAM multivitamin Tablet 1 tablet PO DAILY magnesium 200 mg tablet 200 mg PO DAILY escitalopram oxalate 10 mg tablet 10 mg PO DAILY Qty: 30 3RF norgestimate-ethinyl estradiol [Sprintec (28)] 0.25-0.035 mg tablet 1 tablet PO DAILY Qty: 112 1RF Rx Instructions: take 1 tab by mouth daily skipping placebo pills and taking active pills continuously Follow-up/Referrals: Hunter Parikh MD [Primary Care Provider, Internal Medicine]
[2025-02-23 06:41] VITALS: BP 118/79; PULSE 84; RESP 15; O2SAT 98
[2025-02-23 06:44] VITALS: PULSE 84
[2025-02-23 06:45] VITALS: RESP 13; O2SAT 98
--- NOTE | 2025-02-23 07:21 | PC.NURSE ---
Per EDP pt to sleep for a few and make appointment at 0900 this morning.
--- NOTE | 2025-02-23 07:23 | PC.NURSE ---
Report taken from Yesenia SANDOVAL. She states per EDP, to let pt sleep after medication administration. [place] provided. Pt updated, resting comfortably.
[2025-02-23 08:03] VITALS: TEMP 36.6
[2025-02-23 08:34] VITALS: BP 121/76; PULSE 80; RESP 20; O2SAT 100
== END 2025-02-23 08:35 | disposition home or self-care (01) ==
PROVIDERS: Emergency Provider Student in an Organized Health Care Education/Training Program; PCP Internal Medicine
DX: E06.3 Autoimmune thyroiditis (principal); K59.00 Constipation, unspecified; F31.62 Bipolar disorder, current episode mixed, moderate; F41.9 Anxiety disorder, unspecified; Z87.891 Personal history of nicotine dependence; Z79.899 Other long term (current) drug therapy
CPT/HCPCS: 99283; A9270